=== PATIENT | female | born 1940 | race Two or more races ===

== ENCOUNTER 2024-05-11 08:19 | Inpatient (IN) ==
--- NOTE | 2024-05-11 08:57 | ED.PDOC ---
General ED Provider: Dr. CRISTINA PINEDA MD Chief Complaint: Extremity Swelling/Pain Stated Complaint: Patient is a 84-year-old female that reported to the emergency department with left leg pain. Patient stated that she has had pain and swelling in the left lower leg for the past 2 weeks. Patient stated that she has tried to treat it with [id number] topical ointment with no relief. Patient stated that she has not been seen by her doctor for this issue. Patient says that the area of infection also weeps. She stated that she has a past medical history of A-fib and hypertension. She stated that she is currently treated for the A-fib and hypertension with losartan, Eliquis, metoprolol, and she also takes Celebrex for her arthritis and hydrocodone 10 mg as needed for generalized pain. In the emergency department patient was found to be short of breath respirations were approximately 26 respirations per minute. Patient had an O2 sat of 88% on room air. We placed 2 L nasal cannula and the patient and her O2 sat came up to 95%. When speaking to the patient's family member at bedside it appears patient smoked for well over 30 years and at least 1 pack/day. They stated that the patient was never diagnosed with COPD however that she has shortness of breath chronically. They denied the patient being on any home O2. They denied the patient having any home albuterol or any other inhaler. The patient denied being sick recently. The patient denied being around any other sick contacts recently. The patient currently has an elevated blood pressure of 180/90. Pulse is 63, respirations 26, and a temperature of 97.9 Fahrenheit. Patient is alert and oriented person, place, and time. Patient has a GCS of 15. Time Seen by Provider: 05/11/24 08:21 Mode of Arrival: Wheelchair Information Source: Patient Exam Limitations: No limitations Nursing and Triage Documentation Reviewed and Agree: Yes What is Opioid Naive?: *Opioid Naive implies the patient is not already taking opioids or not chronically receiving opioids on a daily basis. *PRN dosing is not "usually" associated with tolerance. *Patients are at higher risk of over-sedation and aspiration. What is Opioid Tolerant?: *Opioid Tolerance implies less than the expected response to an opioid. *Acquired tolerance is defined by the patient taking 60mg of oral morphine daily (or equianalgesic dose of another opioid) for 1 week or more. *Often associated with chronic pain. *May take more than usual dose to achieve desired pain control. Review of Systems Review Of Systems Constitutional: Reports No symptoms Eyes: Reports No symptoms Ears, Nose, Mouth, Throat: Reports No symptoms Respiratory: Reports Shortness of Breath Cardiac: Reports No symptoms GI: Reports No symptoms : Reports No symptoms Musculoskeletal: Reports No symptoms Skin: Reports Other (Cellulitis left lower leg.) Neurological: Reports No symptoms Endocrine: Reports No symptoms Hematologic/Lymphatic: Reports No symptoms All Other Systems: Reviewed and Negative Physical Exam Physical Exam Appearance: Reports Well-appearing, No pain distress and Well-nourished Ill-appearing: None Pain Distress: None Eyes: Reports ALESSIO, EOMI and Conjunctiva clear ENT: Reports Ears normal, Nose normal and Oropharynx normal Neck: Supple Respiratory: Reports Airway patent, Breath sounds equal and Breath sounds diminished (Breath sounds diminished in the lower lung dubon bilaterally.) Cardiovascular: Reports RRR, Pulses normal, No rub and No murmur GI/: Reports Soft, Nontender, No masses, Bowel sounds normal and No Organomegaly Musculoskeletal: Reports Normal strength, ROM intact and Edema (Patient had +1 edema in the lower extremities bilaterally. Patient had circumferential cellulitis of the left lower leg up to the level approximately 1 inch below the knee. There was no discharge from the area of cellulitis of the left lower leg. The area was warm to touch.) Skin: Reports Warm, Dry and Other (Cellulitis of the left lower leg from the ankle up to 1 inch below the knee circumferentially. No purulent discharge. Area is warm and erythematous. Patient also has what appears to be a fungal (yeast) infection under her right breast.) Neurological: Reports Sensation intact, Motor intact, Reflexes intact, Cranial nerves intact, Alert and Oriented Psychiatric: Reports Affect appropriate and Mood appropriate Course Course 05/11/24 08:54 05/11/24 08:54 Orders, Labs, Meds: Lab Review 05/11/24 05/11/24 08:50 08:54 WBC 6.26 RBC 4.35 Hgb 12.5 Hct 41.6 MCV 95.6 MCH 28.7 MCHC 30.0 L RDW Coeff of Isi 13.4 Plt Count 294 Immature Gran % (Auto) 0.2 Neut % (Auto) 74.6 Lymph % (Auto) 16.0 [place] % (Auto) 6.5 Eos % (Auto) 2.2 Baso % (Auto) 0.5 Neut # (Auto) 4.7 Lymph # (Auto) 1.0 [place] # (Auto) 0.4 Eos # (Auto) 0.1 Baso # (Auto) 0.0 Immature Gran # (Auto) 0.0 Sodium 137.8 Potassium 4.28 Chloride 97.6 L Carbon Dioxide 34.6 H Anion Gap 9.88 BUN 38.6 H Creatinine 1.45 H Estimated GFR (MDRD) 34.00 BUN/Creatinine Ratio 26.62 Glucose 119.5 H Lactic Acid 1.09 Calcium 8.65 Total Bilirubin 0.64 AST 25.9 ALT 17.4 Alkaline Phosphatase 97.8 Troponin I Pending NT-Pro-B Natriuret Pep Pending Total Protein 7.91 Albumin 4.17 Globulin 3.74 Albumin/Globulin Ratio 1.11 SARS CoV-2 RNA Rapid RIKKI Negative Orders Category Date Time Status EKG-(ED ONLY) Stat CARDIO 05/11/24 08:44 Ordered NEBULIZER TREATMENT Stat CARDIO 05/11/24 08:46 Ordered ED APPLY O2 .ONCE EMERGENCY 05/11/24 08:44 Active ED ELECTRICAL EQUIPMENT ASSEMBLER APPLIED .ONCE EMERGENCY 05/11/24 08:44 Active CBC W/ AUTO DIFF Stat LAB 05/11/24 08:54 Completed COMPREHENSIVE METABOLIC PANEL Stat LAB 05/11/24 08:54 Results FLU A/B MOLECULAR Stat LAB 05/11/24 09:17 Received LACTIC ACID Stat LAB 05/11/24 08:54 Completed NT-PROBNP(ED) Stat LAB 05/11/24 08:54 Results SARS COV-2 RNA RAPID RIKKI Stat LAB 05/11/24 08:50 Completed TROPONIN I Stat LAB 05/11/24 08:54 Results Clindamycin Phosphate/D5w [Cleocin 600 mg/50 ml D5w] Meds 05/11/24 08:44 Active 600 mg in 50 ml IV ONCE Furosemide [Lasix] Meds 05/11/24 08:44 Discontinued 40 mg IVP ONCE STA Ipratropium/Albuterol Neb [Duoneb] Meds 05/11/24 08:44 Discontinued 3 ml NEB ONCE STA Methylprednisolone Sod Succ/Pf [Solu-Medrol 125 mg] Meds 05/11/24 08:44 Discontinued 125 mg IVP ONCE ONE Vancomycin/Water For Inj (Peg) [Vancomycin 1 Gram/200 Meds 05/11/24 08:44 Active ml Premix] 1 gm in 200 ml IV ONCE CHEST, 1V AP ONLY Stat RADS 05/11/24 08:44 Completed Medications Generic Name Dose Route Start Last Admin Trade Name Freq PRN Reason Stop Dose Admin VANCOMYCIN/WATER FOR INJ (PEG) 1 gm in 200 mls @ 200 mls/hr 05/11/24 08:44 Vancomycin 1 Gram/200 Ml Premix IV 05/11/24 09:43 ONCE ONE Clindamycin Phosphate 600 mg in 50 mls @ 75 mls/hr 05/11/24 08:44 Cleocin 600 Mg/50 Ml D5w IV 05/11/24 09:23 ONCE ONE Discontinued Medications Generic Name Dose Route Start Last Admin Trade Name Freq PRN Reason Stop Dose Admin Albuterol/Ipratropium 3 ml 05/11/24 08:44 05/11/24 09:01 Ipratropium/Albuterol Vial.Neb NEB 05/11/24 08:45 3 ml ONCE STA Administration Furosemide 40 mg 05/11/24 08:44 Furosemide Inj 40 Mg/4 Ml Vial IVP 05/11/24 08:45 ONCE STA Methylprednisolone Sodium Succinate 125 mg 05/11/24 08:44 Methylprednisolone Sod Succ/Pf 125 Mg/2 Ml Vial IVP 05/11/24 08:45 ONCE ONE Vital Signs: Temp Pulse Resp BP Pulse Ox O2 Flow Rate 05/11/24 08:56 2 05/11/24 08:23 97.9 F 63 20 180/90 H 88 L Discharge Plan Discharge Patient Disposition: PLACED OBSERVATION Discharge Problem: Acute hypoxemic respiratory failure, Cellulitis of left lower extremity, Essential hypertension, Tinea corporis Pulmonary edema Qualifiers: Chronicity: acute Qualified Code(s): J81.0 - Acute pulmonary edema Acute exacerbation of CHF (congestive heart failure) Qualifiers: Heart failure type: unspecified Qualified Code(s): I50.9 - Heart failure, unspecified Did you review [place] [employer]SEMBLY for ALL controlled substances?: Not Applicable ED Provider: CRISTINA PINEDA Condition: Stable Physician Progress Note: Patient is a 84-year-old female that reported to the emergency department with left leg pain. Patient stated that she has had pain and swelling in the left lower leg for the past 2 weeks. Patient stated that she has tried to treat it with [id number] topical ointment with no relief. Patient stated that she has not been seen by her doctor for this issue. Patient says that the area of infection also weeps. She stated that she has a past medical history of A-fib and hypertension. She stated that she is currently treated for the A-fib and hypertension with losartan, Eliquis, metoprolol, and she also takes Celebrex for her arthritis and hydrocodone 10 mg as needed for generalized pain. In the emergency department patient was found to be short of breath respirations were approximately 26 respirations per minute. Patient had an O2 sat of 88% on room air. We placed 2 L nasal cannula and the patient and her O2 sat came up to 95%. When speaking to the patient's family member at bedside it appears patient smoked for well over 30 years and at least 1 pack/day. They stated that the patient was never diagnosed with COPD however that she has shortness of breath chronically. They denied the patient being on any home O2. They denied the patient having any home albuterol or any other inhaler. The patient denied being sick recently. The patient denied being around any other sick contacts recently. The patient currently has an elevated blood pressure of 180/90. Pulse is 63, respirations 26, and a temperature of 97.9 Fahrenheit. Patient is alert and oriented person, place, and time. Patient has a GCS of 15. -Will treat the patient cellulitis of the left lower leg with vancomycin 1 g and clindamycin 600 mg. -We placed patient on 2 L nasal cannula to bring her O2 sat up to 95% as patient has got acute hypoxic respiratory failure. -Will give the patient a DuoNeb treatment and methylprednisolone 125 mg once for difficulty breathing. -Will order chest x-ray, EKG and baseline labs. -Chest x-ray shows consolidations bilaterally in the bibasilar aspects of the lungs. This is either consistent with pneumonia versus pulmonary edema. This was interpreted by the ER physician. In this patient's clinical setting it appears that this is more pulmonary edema due to patient's history of A-fib with apparent congestive heart failure and lower extremity edema as well. -Will treat pulmonary edema with IV Lasix 40 mg. -EKG shows sinus bradycardia with a rate of 52 bpm. Low voltage QRS noted. Normal axis noted. No acute ST elevations noted. This was interpreted by the ER physician. It appears that the patient's sinus bradycardia is likely due to the patient being on beta-marcelo for her chronic ailments. -Will treat patient's tinea corporis with clotrimazole. -Patient has an CLYDE on CKD. Patient's BUN is 38 and creatinine is 1.45. Will hold fluids at this time as patient appears to be fluid overloaded. -Troponin negative and BNP elevated at 2800. -Will contact hospitalist for admission for acute hypoxemic respiratory failure, acute on chronic kidney failure., And CHF exacerbation. -Spoke with Carmen at the hospitalist at [facility] at [phone] on 05/11/2024. At time of conversation patient's vital signs are stable. Discussed the patient's CLYDE on CKD, acute hypoxemic respiratory failure secondary to CHF exacerbation and iv antibiotic needs for patient's circumferential cellulitis of the left lower extremity. Hospitalist has agreed to accept the patient for observation at this time.
[2024-05-11 08:59] LABS: BASOPHILS % (AUTO) 0.5 % (0.0-3.0); EOSINOPHILS # (AUTO) 0.1 K/ul (0.0-0.7); EOSINOPHILS % (AUTO) 2.2 % (0.0-7.0); HEMATOCRIT 41.6 % (37.0-47.0); HEMOGLOBIN 12.5 g/dl (12.0-16.0); IMMATURE GRANULOCYTE % (AUTO) 0.2 % (0.0-5.0); MEAN CORPUSCULAR HEMOGLOBIN 28.7 pg (27.0-31.0); MEAN CORPUSCULAR VOLUME 95.6 fl (81.0-99.0); MONOCYTES # (AUTO) 0.4 K/uL (0.4-2.0); MONOCYTES % (AUTO) 6.5 (0-10); NEUTROPHILS # (AUTO) 4.7 K/ul (2.0-6.9); NEUTROPHILS % (AUTO) 74.6 % (42.2-75.2); PLATELET COUNT 294 10^3/uL (140-440); RDW COEFFICIENT OF VARIATION 13.4 % (11.6-14.8); RED BLOOD COUNT 4.35 10^6/ul (4.20-5.40); WHITE BLOOD COUNT 6.26 K/ul (4.6-10.2)
[2024-05-11] MEDS: DUONEB NEB STA (09:01)
[2024-05-11 09:12] LABS: ALANINE AMINOTRANSFERASE 17.4 U/L (0-35); ALBUMIN 4.17 g/dL (3.5-5.0); ALKALINE PHOSPHATASE 97.8 U/L (53-141); ASPARTATE AMINO TRANSFERASE 25.9 U/L (14-36); BILIRUBIN,TOTAL 0.64 mg/dL (0.2-1.3); BLOOD UREA NITROGEN 38.6 mg/dL (7-17); CALCIUM 8.65 mg/dL (8.4-10.2); CARBON DIOXIDE 34.6 mmol/L (22-30.0); CHLORIDE 97.6 mmol/L (98-107); CREATININE 1.45 mg/dL (0.60-1.30); GLUCOSE 119.5 mg/dL (74-106); POTASSIUM 4.28 mmol/L (3.5-5.1); SODIUM 137.8 mmol/L (134.5-145); TOTAL PROTEIN 7.91 g/dL (6.3-8.2)
--- NOTE | 2024-05-11 09:13 | DI ---
EXAM: CHEST ONE-VIEW HISTORY: Shortness of breath COMPARISON: None FINDINGS: The heart size is prominent. The pulmonary vasculature is normal. Mixed bibasilar inter stitial and alveolar opacities are suggested. No pneumothoraces or pleural effusions. The lungs are hyperinflated. IMPRESSION: 1. Bibasilar atelectasis and/or infiltrates. 2. Cardiomegaly. 3. Suggestion of emphysema. .
[2024-05-11 09:17] LABS: SARS COV-2 RNA RAPID NAAT NEGATIVE (NEGATIVE)
[2024-05-11 09:24] LABS: TROPONIN I < 0.012 ng/ml (0.0000-0.120)
[2024-05-11] MEDS: SOLU-MEDROL 125 MG IVP ONE (09:36)
[2024-05-11] MEDS: LASIX IVP STA (09:37)
[2024-05-11] MEDS: CLEOCIN 600 MG/50 ML D5W 600 MG/50 ML BAG IV ONE (09:38)
[2024-05-11 09:39] LABS: MOLECULAR FLU A NEGATIVE BY NAAT (NEGATIVE); MOLECULAR FLU B NEGATIVE BY NAAT (NEGATIVE)
[2024-05-11] MEDS: LOTRIMIN TP STA (09:39)
[2024-05-11] MEDS: VANCOMYCIN 1 GRAM/200 ML PREMIX 1 GM/200 ML BAG IV ONE (10:15)
[2024-05-11 11:33] VITALS: BMI 40.6
[2024-05-11] MEDS ORDERED: TYLENOL PO PRN (11:41)
--- NOTE | 2024-05-11 11:53 | PCM ---
Date of Service Date Seen by Provider: 05/11/24 Time Seen by Provider: 11:00 Admit Day/Time Admission Date: 05/11/24 Admission Time: 09:34 Reason for Admission Chief Complaint: L.LEG INFLAMMED Hospital Provider Hospital Provider: BAILEE MENEZES PA-C, [facility] History of Present Illness History of Present Illness: Patient is a 84 year old female from home who presents for worsening left lower extremity erythema. She states it started over the last few weeks. It feels s wollen. Has a small blister that has ruptured on her left foot. Notable redness compared to right side. Denies pain or injury. Takes eliquis. Daughter at bedside states she's had issues with this before, last time being about a year ago. She was also noted to have SOB in the ER. She states this is normal for her, and she has exertional dyspnea. She was noted to have O2 sat of 87-88% and was placed on 2L. CXR showed atelectasis vs infiltrates anatoly. Patient denies cough or fever. Patient lives at home alone. Daughter checks in on her often. Pt uses assistive device to walk. Case Discussed With Case Discussed With: Patient's case was discussed with the ER Physicians, Dr. Griffith. [facility] Medical History (Updated 05/11/24 @ 13:25 by JOHNATHON HOFF) Breast cancer C50.919 - Malignant neoplasm of unspecified site of unspecified female breast (ICD-10) A-fib I48.91 - Unspecified atrial fibrillation (ICD-10) Surgical History (Updated 05/11/24 @ 13:25 by JOHNATHON HOFF) History of hysterectomy Z90.710 - Acquired absence of both cervix and uterus (ICD-10) History of appendectomy Z90.49 - Acquired absence of other specified parts of digestive tract (ICD- 10) History of left mastectomy Z90.12 - Acquired absence of left breast and nipple (ICD-10) Social History (Updated 05/11/24 @ 13:22 by JOHNATHON HOFF) Smoking and tobacco status: Former smoker Alcohol intake: never Allergies Allergies Allergy/AdvReac Type Severity Reaction Status Date / Time Penicillins AdvReac Verified 05/11/24 08:30 Current Medications Home Medications apixaban 5 mg tablet (Eliquis) 5 mg PO BID 05/11/24 [History Confirmed 05/11/24 Last Taken 05/11/24] bumetanide 1 mg tablet 1 mg PO DAILY 05/11/24 [History Confirmed 05/11/24 Last Taken 05/11/24] celecoxib 100 mg capsule 100 mg PO Q24H PRN pain 05/11/24 [History Confirmed 05/11/24 Last Taken Unknown] hydrocodone 10 mg-acetaminophen 325 mg tablet 1 tab PO 3XD PRN pain 05/11/24 [History Confirmed 05/11/24 Last Taken Unknown] losartan 50 mg tablet 50 mg PO 2XD 05/11/24 [History Confirmed 05/11/24 Last Taken 05/11/24] metolazone 2.5 mg tablet 2.5 mg PO DIRECTED 05/11/24 [History Confirmed 05/11/24 Last Taken 05/10/24] metoprolol succinate 25 mg tablet,extended release 24 hr 37.5 mg PO BID 05/11/24 [History Confirmed 05/11/24 Last Taken 05/11/24] Home Acetaminophen (Acetaminophen 325 Mg Tablet) 650 mg PO Q4H PRN PRN Reason: Mild Pain Hydrocodone Bitart/Acetaminophen (Hydrocodone Bit/Acetaminophen 10/325 Mg Tablet) 0.5 tab PO 3XD PRN PRN Reason: MODERATE PAIN Last Admin: 05/11/24 12:28 Dose: 0.5 tab Apixaban (Apixaban 5 Mg Tab) 5 mg PO BID [facility] Bumetanide (Bumetanide 1 Mg Tablet) 1 mg PO DAILY [facility] Doxycycline Hyclate (Doxycycline Hyclate 100 Mg Capsule) 100 mg PO Q12HR [facility] Stop: 05/14/24 20:59 Cefazolin Sodium/Dextrose (Ancef 2 Gm/50 Ml D5w) 2 gm in 50 mls @ 75 mls/hr IV Q12HR DEEPTI Stop: 05/14/24 20:59 Losartan Potassium (Losartan Potassium 25 Mg Tablet) 50 mg PO 2XD DEEPTI Metolazone (Metolazone 2.5 Mg Tablet) 2.5 mg PO MoFr@0900 [facility] Metoprolol Succinate (Metoprolol Succinate 25 Mg Tab.Er.24h) 37.5 mg PO BID DEEPTI Nystatin (Nystatin 15 Gm Cream) 1 applic TP BID DEEPTI Ondansetron HCl (Ondansetron Hcl/Pf 4 Mg/2 Ml Sdv) 4 mg IVP Q6H PRN PRN Reason: Nausea / Vomiting Sodium Chloride (0.9% Sodium Chloride 10 Ml Disp.Syrin) 1 syr IVF Q8HR DEEPTI Discontinued Medications Albuterol/Ipratropium (Ipratropium/Albuterol Vial.Neb) 3 ml NEB ONCE STA Stop: 05/11/24 08:45 Last Admin: 05/11/24 09:01 Dose: 3 ml Clotrimazole (Clotrimazole 15 Gm Cream) 1 applic TP ONCE STA Stop: 05/11/24 09:23 Last Admin: 05/11/24 09:39 Dose: 1 applic Furosemide (Furosemide Inj 40 Mg/4 Ml Vial) 40 mg IVP ONCE STA Stop: 05/11/24 08:45 Last Admin: 05/11/24 09:37 Dose: 40 mg VANCOMYCIN/WATER FOR INJ (PEG) (Vancomycin 1 Gram/200 Ml Premix) 1 gm in 200 mls @ 200 mls/hr IV ONCE ONE Stop: 05/11/24 09:43 Last Admin: 05/11/24 10:15 Dose: 200 mls/hr Clindamycin Phosphate (Cleocin 600 Mg/50 Ml D5w) 600 mg in 50 mls @ 75 mls/hr IV ONCE ONE Stop: 05/11/24 09:23 Last Admin: 05/11/24 09:38 Dose: 75 mls/hr Methylprednisolone Sodium Succinate (Methylprednisolone Sod Succ/Pf 125 Mg/2 Ml Vial) 125 mg IVP ONCE ONE Stop: 05/11/24 08:45 Last Admin: 05/11/24 09:36 Dose: 125 mg Opioid Naive vs. Tolerant Does Patient Take Opioids?: Yes Is Patient Opioid Naive?: No What is Opioid Naive?: *Opioid Naive implies the patient is not already taking opioids or not chronically receiving opioids on a daily basis. *PRN dosing is not "usually" associated with tolerance. *Patients are at higher risk of over-sedation and aspiration. Is Patient Opioid Tolerant?: No What is Opioid Tolerant?: *Opioid Tolerance implies less than the expected response to an opioid. *Acquired tolerance is defined by the patient taking 60mg of oral morphine daily (or equianalgesic dose of another opioid) for 1 week or more. *Often associated with chronic pain. *May take more than usual dose to achieve desired pain control. Review of Systems Constitutional: Reports Fatigue and Weakness; Denies Fever Head: Reports Normocephalic and Atraumatic Cardiovascular: Reports Edema; Denies Chest pain or Chest Pressure Respiratory: Reports Shortness of air; Denies Cough Gastrointestinal: Denies Nausea, Vomiting, Diarrhea, Abdominal pain or Melena Genitourinary: Denies Dysuria or Frequency Dermatologic: Reports Rashes and Skin Changes Neurological: Reports Weakness and Problems with walking Physical examination Most Recent Vital Signs: Most Recent Vital Signs Temperature 96.8 F L 05/11/24 10:32 Temperature Source Temporal Artery Scan 05/11/24 10:32 Temperature Source Infrared 05/11/24 08:23 Pulse Rate 54 L 05/11/24 10:32 Respiratory Rate 20 05/11/24 10:32 Blood Pressure 180/90 H 05/11/24 08:23 Blood Pressure Left Arm 138/75 05/11/24 10:32 Blood Pressure Position Supine 05/11/24 10:32 O2 Sat by Pulse Oximetry 96 05/11/24 10:32 Oxygen Delivery Method Nasal Cannula 05/11/24 10:32 Oxygen Flow Rate 2 05/11/24 10:32 Height 5 ft 7 in 05/11/24 10:32 Weight 117.8 kg 05/11/24 10:32 Appearance: Positive No Apparent Distress and Alert and Oriented x3 Skin: Positive Rashes (+erythema noted from dorsal foot to mid zimmer, circumferential, mildly warm, skin is very dry. Small dime sized blister that has ruptured noted on dorsal foot. No other open wounds. Skin blanches. ), [place], Warm, Good Turgor and Good Color HEENT: Positive Normocephalic and Atraumatic Neck: Positive Supple and Midline Trachea Chest/Lungs: Positive Clear to Auscultation Bilaterally; Negative Rales, Rhonci or Wheezes Heart: Positive RRR GI/: Positive Soft, Nontender, Bowel Sounds Normal and No Distention Extremities: Positive Edema (1+ pitting edema anatoly lower ext ) Neurological: Positive Cranial Nerves Intact, Alert, Oriented and Other (+generalized weakness ) Psychiatric: Positive Oriented x4, Appropriate Mood and Appropriate Affect Labs This Visit Labs This Visit: Labs This Visit 05/11/24 05/11/24 05/11/24 08:50 08:54 09:17 WBC 6.26 RBC 4.35 Hgb 12.5 Hct 41.6 MCV 95.6 MCH 28.7 MCHC 30.0 L RDW Coeff of Isi 13.4 Plt Count 294 Immature Gran % (Auto) 0.2 Neut % (Auto) 74.6 Lymph % (Auto) 16.0 [place] % (Auto) 6.5 Eos % (Auto) 2.2 Baso % (Auto) 0.5 Neut # (Auto) 4.7 Lymph # (Auto) 1.0 [place] # (Auto) 0.4 Eos # (Auto) 0.1 Baso # (Auto) 0.0 Immature Gran # (Auto) 0.0 Sodium 137.8 Potassium 4.28 Chloride 97.6 L Carbon Dioxide 34.6 H Anion Gap 9.88 BUN 38.6 H Creatinine 1.45 H Estimated GFR (MDRD) 34.00 BUN/Creatinine Ratio 26.62 Glucose 119.5 H Lactic Acid 1.09 Calcium 8.65 Total Bilirubin 0.64 AST 25.9 ALT 17.4 Alkaline Phosphatase 97.8 Troponin I < 0.012 NT-Pro-B Natriuret Pep 2800 H Total Protein 7.91 Albumin 4.17 Globulin 3.74 Albumin/Globulin Ratio 1.11 Influ A Molecular Assay Negative by naat Influ B Molecular Assay Negative by naat SARS CoV-2 RNA Rapid RIKKI Negative Imaging Imaging: EXAM: CHEST ONE-VIEW HISTORY: Shortness of breath COMPARISON: None FINDINGS: The heart size is prominent. The pulmonary vasculature is normal. Mixed bibasilar interstitial and alveolar opacities are suggested. No pneumothoraces or pleural effusions. The lungs are hyperinflated. IMPRESSION: 1. Bibasilar atelectasis and/or infiltrates. 2. Cardiomegaly. 3. Suggestion of emphysema. Review Statement Review Statement: I have independently reviewed and interpreted the labs/EKGs/imaging that were ordered by the ER provider. I have reviewed all outside records that are available currently in our EMR including imaging/notes/labs from previous visits. Plan Plan: 1. Cellulitis of left lower extremity - Pt given dose of lasix in ER. Will treat with cefazolin and doxy to cover cellulitis and CAP. Daily labs. Check procal. 2. CAP - questionable on CXR. Recommended CT chest but patient declines due to anxiety of CTs and lying flat. Discussed giving her something IV to help her relax but she refuses at this time. Will cover with cefazolin and doxy at this time. 3. Acute hypoxic respiratory failure in setting of CAP and mild fluid overload - Pt takes bumex, given extra dose of lasix in ER. Will monitor. Wean O2 when able. Plan as above. 4. HFpEF - Last echo 2021 with EF of 60%. Sees cardiology at [facility]. Last BNP in 07/26 was 2889. 5. CKD, stage 3b - Last Cr 1.4 and BUN 40 in past 1 year. At baseline. 6. PAF - Cont home meds DVT Prophylaxis: eliquis Time Spent: Greater than 80 minutes spent with patient, 50% of the time spent with this patient was devoted to counseling and coordination of care. [facility] minutes spent discussing advance care planning. Admit to: Obs Discussed Plan of Care with Dr. Lino Barillas. Medications Medication Orders: Medications Ordered Category Date Time Status Acetaminophen [Tylenol] Meds 05/11/24 11:41 Ordered 650 mg PO Q4H PRN Apixaban [Eliquis] Meds 05/11/24 21:00 Ordered 5 mg PO BID Bumetanide [Bumex] Meds 05/12/24 09:00 Ordered 1 mg PO DAILY Hydrocodone Bit/Acetaminophen [[place] 10-325] Meds 05/11/24 11:43 Ordered 0.5 tab PO 3XD PRN Losartan Potassium [Cozaar] Meds 05/11/24 21:00 Ordered 50 mg PO 2XD Metolazone [Zaroxolyn] Meds 05/14/24 12:00 Ordered 2.5 mg PO DIRECTED Metoprolol Succinate [Toprol Xl] Meds 05/11/24 21:00 Ordered 37.5 mg PO BID Ondansetron HCl/Pf [Zofran 4 mg/2 ml] Meds 05/11/24 11:41 Ordered 4 mg IVP Q6H PRN
[2024-05-11] MEDS: NORCO 10-325 PO PRN (12:28)
[2024-05-11] MEDS: DOXYCYCLINE HYCLATE PO SCH (20:51)
[2024-05-11] MEDS: TOPROL XL PO SCH (20:51)
[2024-05-11] MEDS: COZAAR PO SCH (20:51)
[2024-05-11] MEDS: ELIQUIS PO SCH (20:52)
[2024-05-11] MEDS: [UNRECOGNIZED DRUG - OTHER] IV SCH (20:53)
[2024-05-11] MEDS: NYSTATIN CREAM TP SCH (20:53)
[2024-05-11] MEDS: ANCEF IV SCH (20:53)
[2024-05-12 05:39] LABS: BASOPHILS % (AUTO) 0.1 % (0.0-3.0); HEMATOCRIT 41.9 % (37.0-47.0); HEMOGLOBIN 12.5 g/dl (12.0-16.0); IMMATURE GRANULOCYTE % (AUTO) 0.4 % (0.0-5.0); LYMPHOCYTES % (AUTO) 9.8 (10.0-50.0); MEAN CORPUSCULAR HEMOGLOBIN 28.5 pg (27.0-31.0); MEAN CORPUSCULAR HGB CONC 29.8 (31.8-35.4); MEAN CORPUSCULAR VOLUME 95.4 fl (81.0-99.0); MONOCYTES # (AUTO) 0.7 K/uL (0.4-2.0); MONOCYTES % (AUTO) 6.9 (0-10); NEUTROPHILS % (AUTO) 82.8 % (42.2-75.2); PLATELET COUNT 307 10^3/uL (140-440); RDW COEFFICIENT OF VARIATION 13.2 % (11.6-14.8); RED BLOOD COUNT 4.39 10^6/ul (4.20-5.40); WHITE BLOOD COUNT 9.71 K/ul (4.6-10.2)
[2024-05-12 06:05] LABS: ALANINE AMINOTRANSFERASE 23.7 U/L (0-35); ALBUMIN 4.06 g/dL (3.5-5.0); ALKALINE PHOSPHATASE 94.9 U/L (53-141); BILIRUBIN,TOTAL 0.6 mg/dL (0.2-1.3); BLOOD UREA NITROGEN 35.3 mg/dL (7-17); CALCIUM 8.76 mg/dL (8.4-10.2); CARBON DIOXIDE 37.7 mmol/L (22-30.0); CHLORIDE 94.4 mmol/L (98-107); CREATININE 1.47 mg/dL (0.60-1.30); GLUCOSE 127.1 mg/dL (74-106); POTASSIUM 3.81 mmol/L (3.5-5.1); SODIUM 136.9 mmol/L (134.5-145); TOTAL PROTEIN 7.82 g/dL (6.3-8.2)
[2024-05-12] MEDS: BUMEX PO SCH (09:36)
--- NOTE | 2024-05-12 11:44 | PCM.PROG ---
Date/Time Seen Date Seen by Provider: 05/12/24 Time Seen by Provider: 09:00 Provider Provider: BAILEE MENEZES PA-C, [facility] Chief Complaint Chief Complaint: L.LEG INFLAMMED Subjective Subjective: Patient still on O2 this morning, working on weaning it. Her legs feel better. Erythema improved. No events overnight. Objective Appearance: Positive No Apparent Distress and Alert and Oriented x3 Chest/Lungs: Positive Clear to Auscultation Bilaterally; Negative Rales, Rhonci or Wheezes Heart: Positive RRR GI/: Positive Soft, Nontender, Bowel Sounds Normal and No Distention Neurological: Positive Cranial Nerves Intact, Alert, Oriented and Other (+generalized weakness ) Additional Findings: LLE - erythema greatly improved today, mild pitting edema anatoly, pulses and sensation intact Vital Signs Vital Signs: Vital Signs: Last 24 Hours 05/11/24 12:00 05/11/24 13:00 05/11/24 13:00 Temperature Temperature Source Pulse Rate Respiratory Rate Blood Pressure Blood Pressure Mean Blood Pressure Location Blood Pressure Position O2 Sat by Pulse Oximetry Oxygen Delivery Method Nasal Cannula Nasal Cannula Oxygen Flow Rate Telemetry Type Bedside Monitor Telemetry Monitoring Continues Telemetry Heart Rate 59 L Telemetry SPO2 95 EKG [place] Interval 0.15 EKG QRS Interval 0.06 Telemetry Strip Reading SB 05/11/24 14:00 05/11/24 14:00 05/11/24 15:00 Temperature Temperature Source Pulse Rate 66 Respiratory Rate 24 H Blood Pressure 137/53 L Blood Pressure Mean 81 Blood Pressure Location Left Radial Artery Blood Pressure Position Sitting O2 Sat by Pulse Oximetry 93 L Oxygen Delivery Method Nasal Cannula Room Air Room Air Oxygen Flow Rate Telemetry Type Telemetry Monitoring Telemetry Heart Rate Telemetry SPO2 EKG TX Interval EKG QRS Interval Telemetry Strip Reading 05/11/24 15:18 05/11/24 17:00 05/11/24 17:24 Temperature Temperature Source Pulse Rate 60 Respiratory Rate 24 H Blood Pressure 145/72 H Blood Pressure Mean 96 Blood Pressure Location Left Radial Artery Blood Pressure Position Sitting O2 Sat by Pulse Oximetry 94 L Oxygen Delivery Method Room Air Room Air Nasal Cannula Oxygen Flow Rate 2 Telemetry Type Telemetry Monitoring Telemetry Heart Rate Telemetry SPO2 EKG TX Interval EKG QRS Interval Telemetry Strip Reading 05/11/24 17:45 05/11/24 18:28 05/11/24 19:00 Temperature Temperature Source Pulse Rate Respiratory Rate Blood Pressure Blood Pressure Mean Blood Pressure Location Blood Pressure Position O2 Sat by Pulse Oximetry Oxygen Delivery Method Nasal Cannula Nasal Cannula Nasal Cannula Oxygen Flow Rate 2 Telemetry Type Telemetry Monitoring Telemetry Heart Rate Telemetry SPO2 EKG TX Interval EKG QRS Interval Telemetry Strip Reading 05/11/24 19:00 05/11/24 20:00 05/11/24 20:00 Temperature Temperature Source Pulse Rate Respiratory Rate 20 Blood Pressure Blood Pressure Mean Blood Pressure Location Blood Pressure Position O2 Sat by Pulse Oximetry Oxygen Delivery Method Nasal Cannula Oxygen Flow Rate Telemetry Type Bedside Monitor Telemetry Monitoring Continues Telemetry Heart Rate 59 L Telemetry SPO2 95 EKG [place] Interval 0.14 EKG QRS Interval 0.04 L Telemetry Strip Reading SB 05/11/24 20:00 05/11/24 21:00 05/11/24 21:25 Temperature 97.8 F Temperature Source Temporal Artery Scan Pulse Rate 54 L Respiratory Rate 24 H Blood Pressure 134/62 Blood Pressure Mean 86 Blood Pressure Location Left Arm Blood Pressure Position Supine O2 Sat by Pulse Oximetry 95 Oxygen Delivery Method Nasal Cannula Nasal Cannula Nasal Cannula Oxygen Flow Rate 2 2 Telemetry Type Telemetry Monitoring Telemetry Heart Rate Telemetry SPO2 EKG TX Interval EKG QRS Interval Telemetry Strip Reading 05/11/24 22:00 05/11/24 23:00 05/12/24 00:00 Temperature Temperature Source Pulse Rate Respiratory Rate Blood Pressure Blood Pressure Mean Blood Pressure Location Blood Pressure Position O2 Sat by Pulse Oximetry Oxygen Delivery Method Nasal Cannula Nasal Cannula Nasal Cannula Oxygen Flow Rate Telemetry Type Telemetry Monitoring Telemetry Heart Rate Telemetry SPO2 EKG TX Interval EKG QRS Interval Telemetry Strip Reading 05/12/24 00:56 05/12/24 01:00 05/12/24 02:00 Temperature Temperature Source Pulse Rate Respiratory Rate Blood Pressure Blood Pressure Mean Blood Pressure Location Blood Pressure Position O2 Sat by Pulse Oximetry Oxygen Delivery Method Nasal Cannula Nasal Cannula Oxygen Flow Rate Telemetry Type Bedside Monitor Telemetry Monitoring Continues Telemetry Heart Rate 54 L Telemetry SPO2 EKG TX Interval 0.14 EKG QRS Interval 0.06 Telemetry Strip Reading SB 05/12/24 03:00 05/12/24 04:00 05/12/24 05:00 Temperature Temperature Source Pulse Rate Respiratory Rate Blood Pressure Blood Pressure Mean Blood Pressure Location Blood Pressure Position O2 Sat by Pulse Oximetry Oxygen Delivery Method Nasal Cannula Nasal Cannula Nasal Cannula Oxygen Flow Rate Telemetry Type Telemetry Monitoring Telemetry Heart Rate Telemetry SPO2 EKG TX Interval EKG QRS Interval Telemetry Strip Reading 05/12/24 05:34 05/12/24 05:51 05/12/24 06:00 Temperature 97.5 F L Temperature Source Temporal Artery Scan Pulse Rate 55 L Respiratory Rate 16 Blood Pressure 140/62 Blood Pressure Mean 88 Blood Pressure Location Right Arm Blood Pressure Position Supine O2 Sat by Pulse Oximetry 99 Oxygen Delivery Method Nasal Cannula Nasal Cannula Nasal Cannula Oxygen Flow Rate 2 2 Telemetry Type Telemetry Monitoring Telemetry Heart Rate Telemetry SPO2 EKG TX Interval EKG QRS Interval Telemetry Strip Reading 05/12/24 07:00 05/12/24 07:00 05/12/24 08:00 Temperature Temperature Source Pulse Rate Respiratory Rate Blood Pressure Blood Pressure Mean Blood Pressure Location Blood Pressure Position O2 Sat by Pulse Oximetry Oxygen Delivery Method Nasal Cannula Nasal Cannula Oxygen Flow Rate Telemetry Type Bedside Monitor Telemetry Monitoring Continues Telemetry Heart Rate 65 Telemetry SPO2 96 EKG TX Interval 0.15 EKG QRS Interval 0.06 Telemetry Strip Reading NSR 05/12/24 09:00 05/12/24 09:55 05/12/24 10:00 Temperature 97.3 F L Temperature Source Tympanic Pulse Rate 65 Respiratory Rate 20 Blood Pressure 151/56 H Blood Pressure Mean 87 Blood Pressure Location Left Arm Blood Pressure Position Sitting O2 Sat by Pulse Oximetry 93 L Oxygen Delivery Method Nasal Cannula Nasal Cannula Nasal Cannula Oxygen Flow Rate Telemetry Type Telemetry Monitoring Telemetry Heart Rate Telemetry SPO2 EKG TX Interval EKG QRS Interval Telemetry Strip Reading 05/12/24 11:00 Temperature Temperature Source Pulse Rate Respiratory Rate Blood Pressure Blood Pressure Mean Blood Pressure Location Blood Pressure Position O2 Sat by Pulse Oximetry Oxygen Delivery Method Nasal Cannula Oxygen Flow Rate Telemetry Type Telemetry Monitoring Telemetry Heart Rate Telemetry SPO2 EKG TX Interval EKG QRS Interval Telemetry Strip Reading Lab Results Lab Results: Lab Results: Last 24 Hours 05/12/24 05:16 WBC 9.71 RBC 4.39 Hgb 12.5 Hct 41.9 MCV 95.4 MCH 28.5 MCHC 29.8 L RDW Coeff of Isi 13.2 Plt Count 307 Immature Gran % (Auto) 0.4 Neut % (Auto) 82.8 H Lymph % (Auto) 9.8 L [place] % (Auto) 6.9 Eos % (Auto) 0.0 Baso % (Auto) 0.1 Neut # (Auto) 8.0 H Lymph # (Auto) 1.0 [place] # (Auto) 0.7 Eos # (Auto) 0.0 Baso # (Auto) 0.0 Immature Gran # (Auto) 0.0 Sodium 136.9 Potassium 3.81 Chloride 94.4 L Carbon Dioxide 37.7 H Anion Gap 8.61 BUN 35.3 H Creatinine 1.47 H Estimated GFR (MDRD) 34.00 BUN/Creatinine Ratio 24.01 Glucose 127.1 H Hemoglobin A1c 5.89 Calcium 8.76 Total Bilirubin 0.60 AST 30.0 ALT 23.7 Alkaline Phosphatase 94.9 Total Protein 7.82 Albumin 4.06 Globulin 3.76 Albumin/Globulin Ratio 1.07 Procalcitonin < 0.05 Additional Comments Additional Comments: I have independently reviewed and interpreted the labs/EKGs/imaging ordered during this hospital stay. I have reviewed outside records that are available in our EMR that pertain to medical stay including imaging/notes/labs from previous visits. Active Medications Active Medications: Medications Generic Name Dose Route Start Last Admin Trade Name Freq PRN Reason Stop Dose Admin Acetaminophen 650 mg 05/11/24 11:41 Acetaminophen 325 Mg Tablet PO Q4H PRN Mild Pain Hydrocodone Bitart/Acetaminophen 0.5 tab 05/11/24 11:43 05/12/24 03:58 Hydrocodone Bit/Acetaminophen 10/325 Mg Tablet PO 0.5 tab 3XD PRN Administration MODERATE PAIN Apixaban 5 mg 05/11/24 21:00 05/12/24 09:37 Apixaban 5 Mg Tab PO 5 mg BID DEEPTI Administration Bumetanide 1 mg 05/12/24 09:00 05/12/24 09:36 Bumetanide 1 Mg Tablet PO 1 mg DAILY DEEPTI Administration Doxycycline Hyclate 100 mg 05/11/24 21:00 05/12/24 09:37 Doxycycline Hyclate 100 Mg Capsule PO 05/14/24 20:59 100 mg Q12HR DEEPTI Administration Cefazolin Sodium/Dextrose 2 gm in 50 mls @ 75 mls/hr 05/11/24 21:00 05/12/24 09:32 Ancef 2 Gm/50 Ml D5w IV 05/14/24 20:59 75 mls/hr Q12HR DEEPTI Administration Losartan Potassium 50 mg 05/11/24 21:00 05/12/24 09:45 Losartan Potassium 25 Mg Tablet PO 50 mg 2XD DEEPTI Administration Metolazone 2.5 mg 05/14/24 09:00 Metolazone 2.5 Mg Tablet PO MoFr@0900 DEEPTI Metoprolol Succinate 37.5 mg 05/11/24 21:00 05/12/24 09:37 Metoprolol Succinate 25 Mg Tab.Er.24h PO 37.5 mg BID DEEPTI Administration Nystatin 1 applic 05/11/24 21:00 05/12/24 09:38 Nystatin 15 Gm Cream TP 1 applic BID DEEPTI Administration Ondansetron HCl 4 mg 05/11/24 11:41 Ondansetron Hcl/Pf 4 Mg/2 Ml Sdv IVP Q6H PRN Nausea / Vomiting Sodium Chloride 1 syr 05/11/24 21:00 05/12/24 06:07 0.9% Sodium Chloride 10 Ml Disp.Syrin IVF 1 syr Q8HR DEEPTI Administration Plan Plan: 1. Cellulitis of left lower extremity - Improved. Cont with cefazolin and doxy to cover cellulitis and CAP. Daily labs. 2. CAP - questionable on CXR. Recommended CT chest but patient declines due to anxiety of CTs and lying flat. Discussed giving her something IV to help her relax but she refuses at this time. Will cover with cefazolin and doxy at this time. 3. Acute hypoxic respiratory failure in setting of CAP and mild fluid overload - Pt takes bumex, given extra dose of lasix in ER. Will monitor. Wean O2 when able. Plan as above. 4. HFpEF - Last echo 2021 with EF of 60%. Sees cardiology at [facility]. Last BNP in 07/26 was 2889. 5. CKD, stage 3b - Last Cr 1.4 and BUN 40 in past 1 year. At baseline. 6. PAF - Cont home meds DVT Prophylaxis: layla Dispo: Possible dc on oral abx tomorrow Review Statement Review Statement: I have personally discussed and reviewed the patient's visit/currently labs/imaging/decision making with Dr. Barillas, my supervising attending. Greater that 50 minutes spent with patient, 50% of the time spent with this patient was devoted to counseling and coordination of care.
[2024-05-13 05:10] LABS: BASOPHILS % (AUTO) 0.4 % (0.0-3.0); EOSINOPHILS # (AUTO) 0.1 K/ul (0.0-0.7); EOSINOPHILS % (AUTO) 1.3 % (0.0-7.0); HEMATOCRIT 41.8 % (37.0-47.0); HEMOGLOBIN 12.9 g/dl (12.0-16.0); IMMATURE GRANULOCYTE % (AUTO) 0.2 % (0.0-5.0); LYMPHOCYTES % (AUTO) 12.5 (10.0-50.0); MEAN CORPUSCULAR HEMOGLOBIN 29.2 pg (27.0-31.0); MEAN CORPUSCULAR HGB CONC 30.9 (31.8-35.4); MEAN CORPUSCULAR VOLUME 94.6 fl (81.0-99.0); MONOCYTES # (AUTO) 0.5 K/uL (0.4-2.0); MONOCYTES % (AUTO) 6.4 (0-10); NEUTROPHILS # (AUTO) 6.6 K/ul (2.0-6.9); NEUTROPHILS % (AUTO) 79.2 % (42.2-75.2); PLATELET COUNT 302 10^3/uL (140-440); RDW COEFFICIENT OF VARIATION 13.2 % (11.6-14.8); RED BLOOD COUNT 4.42 10^6/ul (4.20-5.40); WHITE BLOOD COUNT 8.27 K/ul (4.6-10.2)
[2024-05-13 05:23] LABS: ALANINE AMINOTRANSFERASE 18.3 U/L (0-35); ALBUMIN 4.07 g/dL (3.5-5.0); ALKALINE PHOSPHATASE 85.4 U/L (53-141); ASPARTATE AMINO TRANSFERASE 30.4 U/L (14-36); BILIRUBIN,TOTAL 0.64 mg/dL (0.2-1.3); BLOOD UREA NITROGEN 41.2 mg/dL (7-17); CALCIUM 8.63 mg/dL (8.4-10.2); CHLORIDE 92.3 mmol/L (98-107); CREATININE 1.48 mg/dL (0.60-1.30); GLUCOSE 117.5 mg/dL (74-106); POTASSIUM 4.29 mmol/L (3.5-5.1); SODIUM 135.8 mmol/L (134.5-145); TOTAL PROTEIN 7.86 g/dL (6.3-8.2)
[2024-05-13 05:30] LABS: CARBON DIOXIDE 34.8 mmol/L (22-30.0)
[2024-05-13] MEDS: BUMEX PO SCH (05:47)
--- NOTE | 2024-05-13 10:52 | PCM.PROG ---
Date/Time Seen Date Seen by Provider: 05/13/24 Time Seen by Provider: 08:50 Provider Provider: BAILEE MENEZES PA-C, [facility] Chief Complaint Chief Complaint: L.LEG INFLAMMED Subjective Subjective: Patient denies complaints. However she became hypoxic into 70s without oxygen through the night. She does not wear O2 at home. Suspect some underlying COPD and/or AMY. Objective Appearance: Positive No Apparent Distress and Alert and Oriented x3 Chest/Lungs: Positive Clear to Auscultation Bilaterally; Negative Rales, Rhonci or Wheezes Heart: Positive RRR GI/: Positive Soft, Nontender, Bowel Sounds Normal and No Distention Neurological: Positive Cranial Nerves Intact, Alert, Oriented and Other (+generalized weakness ) Additional Findings: LLE - erythema greatly improved today, mild pitting edema anatoly, pulses and sensation intact Vital Signs Vital Signs: Vital Signs: Last 24 Hours 05/12/24 11:00 05/12/24 11:58 05/12/24 13:00 Temperature Temperature Source Pulse Rate Respiratory Rate Blood Pressure Blood Pressure Mean Blood Pressure Location Blood Pressure Position O2 Sat by Pulse Oximetry Oxygen Delivery Method Nasal Cannula Nasal Cannula Nasal Cannula Oxygen Flow Rate Telemetry Type Telemetry Monitoring Telemetry Heart Rate Telemetry SPO2 EKG [place] Interval EKG QRS Interval Telemetry Strip Reading 05/12/24 13:00 05/12/24 13:53 05/12/24 13:57 Temperature 97.4 F L Temperature Source Tympanic Pulse Rate 63 Respiratory Rate 24 H Blood Pressure 153/67 H Blood Pressure Mean 95 Blood Pressure Location Left Arm Blood Pressure Position Sitting O2 Sat by Pulse Oximetry 89 L Oxygen Delivery Method Nasal Cannula Nasal Cannula Oxygen Flow Rate Telemetry Type Remote Telemetry Telemetry Monitoring Continues Telemetry Heart Rate 65 Telemetry SPO2 90 L EKG [place] Interval 0.13 EKG QRS Interval 0.06 Telemetry Strip Reading NSR 05/12/24 14:00 05/12/24 15:00 05/12/24 15:58 Temperature Temperature Source Pulse Rate Respiratory Rate Blood Pressure Blood Pressure Mean Blood Pressure Location Blood Pressure Position O2 Sat by Pulse Oximetry Oxygen Delivery Method Nasal Cannula Nasal Cannula Nasal Cannula Oxygen Flow Rate 2 Telemetry Type Telemetry Monitoring Telemetry Heart Rate Telemetry SPO2 EKG AZ Interval EKG QRS Interval Telemetry Strip Reading 05/12/24 17:00 05/12/24 18:00 05/12/24 18:00 Temperature 97.3 F L Temperature Source Tympanic Pulse Rate 65 Respiratory Rate 19 Blood Pressure 151/56 H Blood Pressure Mean 87 Blood Pressure Location Left Arm Blood Pressure Position Sitting O2 Sat by Pulse Oximetry 93 L Oxygen Delivery Method Nasal Cannula Nasal Cannula Nasal Cannula Oxygen Flow Rate Telemetry Type Telemetry Monitoring Telemetry Heart Rate Telemetry SPO2 EKG AZ Interval EKG QRS Interval Telemetry Strip Reading 05/12/24 19:00 05/12/24 19:00 05/12/24 20:00 Temperature Temperature Source Pulse Rate Respiratory Rate Blood Pressure Blood Pressure Mean Blood Pressure Location Blood Pressure Position O2 Sat by Pulse Oximetry Oxygen Delivery Method Nasal Cannula Nasal Cannula Oxygen Flow Rate Telemetry Type Bedside Monitor Telemetry Monitoring Continues Telemetry Heart Rate 65 Telemetry SPO2 92 L EKG [place] Interval 0.13 EKG QRS Interval 0.06 Telemetry Strip Reading NSR 05/12/24 20:00 05/12/24 21:00 05/12/24 21:44 Temperature 97.6 F Temperature Source Temporal Artery Scan Pulse Rate 60 Respiratory Rate 20 Blood Pressure 131/75 Blood Pressure Mean 93 Blood Pressure Location Left Arm Blood Pressure Position Supine O2 Sat by Pulse Oximetry 96 94 L Oxygen Delivery Method Nasal Cannula Nasal Cannula Nasal Cannula Oxygen Flow Rate 2 2 Telemetry Type Telemetry Monitoring Telemetry Heart Rate Telemetry SPO2 EKG AZ Interval EKG QRS Interval Telemetry Strip Reading 05/12/24 22:00 05/12/24 23:00 05/13/24 00:00 Temperature Temperature Source Pulse Rate Respiratory Rate Blood Pressure Blood Pressure Mean Blood Pressure Location Blood Pressure Position O2 Sat by Pulse Oximetry Oxygen Delivery Method Nasal Cannula Nasal Cannula Nasal Cannula Oxygen Flow Rate Telemetry Type Telemetry Monitoring Telemetry Heart Rate Telemetry SPO2 EKG AZ Interval EKG QRS Interval Telemetry Strip Reading 05/13/24 01:00 05/13/24 01:00 05/13/24 02:00 Temperature Temperature Source Pulse Rate Respiratory Rate Blood Pressure Blood Pressure Mean Blood Pressure Location Blood Pressure Position O2 Sat by Pulse Oximetry Oxygen Delivery Method Nasal Cannula Nasal Cannula Oxygen Flow Rate Telemetry Type Bedside Monitor Telemetry Monitoring Continues Telemetry Heart Rate 57 L Telemetry SPO2 EKG [place] Interval 0.15 EKG QRS Interval 0.06 Telemetry Strip Reading SB 05/13/24 02:00 05/13/24 03:00 05/13/24 04:00 Temperature 97.6 F Temperature Source Temporal Artery Scan Pulse Rate 65 Respiratory Rate 22 H Blood Pressure 149/82 H Blood Pressure Mean 104 Blood Pressure Location Left Arm Blood Pressure Position Sitting O2 Sat by Pulse Oximetry 93 L Oxygen Delivery Method Nasal Cannula Nasal Cannula Nasal Cannula Oxygen Flow Rate 2 Telemetry Type Telemetry Monitoring Telemetry Heart Rate Telemetry SPO2 EKG AZ Interval EKG QRS Interval Telemetry Strip Reading 05/13/24 05:00 05/13/24 05:21 05/13/24 05:34 Temperature 97.4 F L Temperature Source Temporal Artery Scan Pulse Rate 63 Respiratory Rate 20 Blood Pressure 117/65 Blood Pressure Mean 82 Blood Pressure Location Left Arm Blood Pressure Position Sitting O2 Sat by Pulse Oximetry 93 L 94 L Oxygen Delivery Method Nasal Cannula Nasal Cannula Nasal Cannula Oxygen Flow Rate 2 2 Telemetry Type Telemetry Monitoring Telemetry Heart Rate Telemetry SPO2 EKG AZ Interval EKG QRS Interval Telemetry Strip Reading 05/13/24 06:00 05/13/24 07:00 05/13/24 07:00 Temperature Temperature Source Pulse Rate Respiratory Rate Blood Pressure Blood Pressure Mean Blood Pressure Location Blood Pressure Position O2 Sat by Pulse Oximetry Oxygen Delivery Method Nasal Cannula Nasal Cannula Oxygen Flow Rate Telemetry Type Bedside Monitor Telemetry Monitoring Continues Telemetry Heart Rate 70 Telemetry SPO2 89 L EKG [place] Interval 0.14 EKG QRS Interval 0.06 Telemetry Strip Reading Sinus Arrhythmia with PAC's 05/13/24 08:00 05/13/24 09:00 05/13/24 10:00 Temperature Temperature Source Pulse Rate Respiratory Rate Blood Pressure Blood Pressure Mean Blood Pressure Location Blood Pressure Position O2 Sat by Pulse Oximetry Oxygen Delivery Method Nasal Cannula Nasal Cannula Nasal Cannula Oxygen Flow Rate Telemetry Type Telemetry Monitoring Telemetry Heart Rate Telemetry SPO2 EKG AZ Interval EKG QRS Interval Telemetry Strip Reading 05/13/24 10:00 05/13/24 10:00 05/13/24 10:42 Temperature 97 F L Temperature Source Tympanic Pulse Rate 60 Respiratory Rate 15 Blood Pressure 134/64 Blood Pressure Mean 87 Blood Pressure Location Left Arm Blood Pressure Position Sitting O2 Sat by Pulse Oximetry 90 L 93 L Oxygen Delivery Method Nasal Cannula Nasal Cannula Nasal Cannula Oxygen Flow Rate 2 Telemetry Type Telemetry Monitoring Telemetry Heart Rate Telemetry SPO2 EKG [place] Interval EKG QRS Interval Telemetry Strip Reading Lab Results Lab Results: Lab Results: Last 24 Hours 05/13/24 05:05 WBC 8.27 RBC 4.42 Hgb 12.9 Hct 41.8 MCV 94.6 MCH 29.2 MCHC 30.9 L RDW Coeff of Isi 13.2 Plt Count 302 Immature Gran % (Auto) 0.2 Neut % (Auto) 79.2 H Lymph % (Auto) 12.5 [place] % (Auto) 6.4 Eos % (Auto) 1.3 Baso % (Auto) 0.4 Neut # (Auto) 6.6 Lymph # (Auto) 1.0 [place] # (Auto) 0.5 Eos # (Auto) 0.1 Baso # (Auto) 0.0 Immature Gran # (Auto) 0.0 Sodium 135.8 Potassium 4.29 Chloride 92.3 L Carbon Dioxide 34.8 H Anion Gap 12.99 BUN 41.2 H Creatinine 1.48 H Estimated GFR (MDRD) 34.00 BUN/Creatinine Ratio 27.83 Glucose 117.5 H Calcium 8.63 Total Bilirubin 0.64 AST 30.4 ALT 18.3 Alkaline Phosphatase 85.4 Total Protein 7.86 Albumin 4.07 Globulin 3.79 Albumin/Globulin Ratio 1.07 Additional Comments Additional Comments: I have independently reviewed and interpreted the labs/EKGs/imaging ordered during this hospital stay. I have reviewed outside records that are available in our EMR that pertain to medical stay including imaging/notes/labs from previous visits. Active Medications Active Medications: Medications Generic Name Dose Route Start Last Admin Trade Name Freq PRN Reason Stop Dose Admin Acetaminophen 650 mg 05/11/24 11:41 Acetaminophen 325 Mg Tablet PO Q4H PRN Mild Pain Hydrocodone Bitart/Acetaminophen 0.5 tab 05/11/24 11:43 05/13/24 04:31 Hydrocodone Bit/Acetaminophen 10/325 Mg Tablet PO 0.5 tab 3XD PRN Administration MODERATE PAIN Apixaban 5 mg 05/11/24 21:00 05/13/24 08:03 Apixaban 5 Mg Tab PO 5 mg BID DEEPTI Administration Bumetanide 1 mg 05/13/24 06:00 05/13/24 05:47 Bumetanide 1 Mg Tablet PO 1 mg QDAC2 DEEPTI Administration Doxycycline Hyclate 100 mg 05/11/24 21:00 05/13/24 08:02 Doxycycline Hyclate 100 Mg Capsule PO 05/14/24 20:59 100 mg Q12HR DEEPTI Administration Cefazolin Sodium/Dextrose 2 gm in 50 mls @ 75 mls/hr 05/11/24 21:00 05/13/24 08:02 Ancef 2 Gm/50 Ml D5w IV 05/14/24 20:59 75 mls/hr Q12HR DEEPTI Administration Losartan Potassium 50 mg 05/11/24 21:00 05/13/24 08:03 Losartan Potassium 25 Mg Tablet PO 50 mg 2XD DEEPTI Administration Metolazone 2.5 mg 05/14/24 09:00 Metolazone 2.5 Mg Tablet PO MoFr@0900 DEEPTI Metoprolol Succinate 37.5 mg 05/11/24 21:00 05/13/24 08:03 Metoprolol Succinate 25 Mg Tab.Er.24h PO 37.5 mg BID DEEPTI Administration Nystatin 1 applic 05/11/24 21:00 05/13/24 08:04 Nystatin 15 Gm Cream TP 1 applic BID DEEPTI Administration Ondansetron HCl 4 mg 05/11/24 11:41 Ondansetron Hcl/Pf 4 Mg/2 Ml Sdv IVP Q6H PRN Nausea / Vomiting Sodium Chloride 1 syr 05/11/24 21:00 05/13/24 04:32 0.9% Sodium Chloride 10 Ml Disp.Syrin IVF 1 syr Q8HR DEEPTI Administration Sodium Chloride 1 syr 05/12/24 17:19 0.9% Sodium Chloride 10 Ml Disp.Syrin IVF PRN PRN Maintain IV Patency Plan Plan: 1. Cellulitis of left lower extremity - Improved. Cont with cefazolin and doxy to cover cellulitis and CAP. Daily labs. 2. CAP - questionable on CXR. Recommended CT chest but patient declines due to anxiety of CTs and lying flat. Discussed giving her something IV to help her relax but she refuses at this time. Will cover with cefazolin and doxy at this time. Getting 2 view CXR today to better evaluate. 3. Acute hypoxic respiratory failure in setting of CAP and mild fluid overload - Pt takes bumex, given extra dose of lasix in ER. Will monitor. Wean O2 when able. Plan as above. 4. HFpEF - Last echo 2021 with EF of 60%. Sees cardiology at [facility]. Last BNP in 07/26 was 2889. 5. CKD, stage 3b - Last Cr 1.4 and BUN 40 in past 1 year. At baseline. 6. PAF - Cont home meds DVT Prophylaxis: eliquis Dispo: Possible dc on oral abx tomorrow Update; CXR showing some fluid overload. Bumex 1 mg IVP ordered. Later patient has gone into a fib RVR. Checked on patient at bedside, she was asymptomatic. Gave lopressor 2.5 mg IVP. Will continue to monitor. She does have a hx of a fib. Echo ordered for tomorrow as well. Review Statement Review Statement: I have personally discussed and reviewed the patient's visit/currently labs/imaging/decision making with Dr. Barillas, my supervising attending. Greater that 50 minutes spent with patient, 50% of the time spent with this patient was devoted to counseling and coordination of care.
--- NOTE | 2024-05-13 11:15 | DI ---
EXAM: CHEST RADIOGRAPH; TWO VIEW HISTORY: Hypoxia. COMPARISON: Chest radiograph 05/11/2024. FINDINGS: Evaluation of the lung apices superimposed anatomy Cardiomediastinal silhouette is unchanged. Atherosclerosis of the aorta. No pneumothorax. Trace bi lateral pleural effusions and/or pleural thickening. Increased interstitial markings represent pulmo nary edema versus pneumonitis versus chronic fibrotic changes; right greater than left. Possible chr onic obstructive pulmonary disease. Degenerative changes IMPRESSION: As above.
[2024-05-13] MEDS: LOPRESSOR IVP ONE ×2 (12:46→14:06)
[2024-05-13] MEDS: BUMEX IVP ONE (12:51)
[2024-05-13] MEDS: CARDIZEM INJ IVP STA ×2 (15:44→17:39)
[2024-05-13] MEDS: TOPROL XL PO SCH (20:30)
[2024-05-13] MEDS: CARDIZEM 125 MG in SODIUM CHLORIDE 100ML 100 ML IV SCH (22:40)
[2024-05-14 05:24] LABS: BASOPHILS % (AUTO) 0.5 % (0.0-3.0); EOSINOPHILS # (AUTO) 0.1 K/ul (0.0-0.7); EOSINOPHILS % (AUTO) 1.5 % (0.0-7.0); HEMATOCRIT 42.3 % (37.0-47.0); HEMOGLOBIN 13.1 g/dl (12.0-16.0); IMMATURE GRANULOCYTE % (AUTO) 0.4 % (0.0-5.0); LYMPHOCYTES # (AUTO) 1.2 K/uL (0.60-3.4); LYMPHOCYTES % (AUTO) 16.4 (10.0-50.0); MEAN CORPUSCULAR VOLUME 93.8 fl (81.0-99.0); MONOCYTES # (AUTO) 0.6 K/uL (0.4-2.0); MONOCYTES % (AUTO) 7.5 (0-10); NEUTROPHILS # (AUTO) 5.5 K/ul (2.0-6.9); NEUTROPHILS % (AUTO) 73.7 % (42.2-75.2); PLATELET COUNT 285 10^3/uL (140-440); RDW COEFFICIENT OF VARIATION 13.3 % (11.6-14.8); RED BLOOD COUNT 4.51 10^6/ul (4.20-5.40)
[2024-05-14 05:40] LABS: ALBUMIN 3.81 g/dL (3.5-5.0); ALKALINE PHOSPHATASE 92.6 U/L (53-141); ASPARTATE AMINO TRANSFERASE 28.2 U/L (14-36); BILIRUBIN,TOTAL 0.52 mg/dL (0.2-1.3); BLOOD UREA NITROGEN 49.7 mg/dL (7-17); CALCIUM 8.41 mg/dL (8.4-10.2); CARBON DIOXIDE 35.3 mmol/L (22-30.0); CHLORIDE 95.2 mmol/L (98-107); CREATININE 1.49 mg/dL (0.60-1.30); GLUCOSE 126.4 mg/dL (74-106); POTASSIUM 4.11 mmol/L (3.5-5.1); SODIUM 136.3 mmol/L (134.5-145); TOTAL PROTEIN 7.4 g/dL (6.3-8.2)
[2024-05-14] MEDS: ZAROXOLYN PO SCH (09:18)
[2024-05-14] MEDS: LANOXIN IVP SCH ×2 (09:19→15:11)
[2024-05-14] MEDS: NORCO 5-325 PO PRN (11:04)
--- NOTE | 2024-05-14 13:11 | PCM.PROG ---
Date/Time Seen Date Seen by Provider: 05/14/24 Time Seen by Provider: 08:40 Provider Provider: BAILEE MENEZES PA-C, [facility] Chief Complaint Chief Complaint: L.LEG INFLAMMED Subjective Subjective: Patient denies complaints. Overall cellulitis is improved. Breathing is baseline. Went into a fib RVR yesterday requiring 2 doses IV lopressor, 2 doses IV cardizem, and ultimately placed on cardizem drip. Could only tolerate 2.5 mg/hr overnight due to soft blood pressures. HR still mildly elevated today. Objective Appearance: Positive No Apparent Distress and Alert and Oriented x3 Chest/Lungs: Positive Clear to Auscultation Bilaterally; Negative Rales, Rhonci or Wheezes Heart: Positive RRR GI/: Positive Soft, Nontender, Bowel Sounds Normal and No Distention Neurological: Positive Cranial Nerves Intact, Alert, Oriented and Other (+generalized weakness ) Additional Findings: LLE - erythema greatly improved today, mild pitting edema anatoly, pulses and sensation intact Vital Signs Vital Signs: Vital Signs: Last 24 Hours 05/13/24 13:11 05/13/24 13:37 05/13/24 13:45 Temperature 97.1 F L Temperature Source Tympanic Pulse Rate 129 H 135 H 133 H Respiratory Rate 20 22 H 20 Blood Pressure 115/57 L 115/57 L 110/60 Blood Pressure Mean 76 76 76 Blood Pressure Location Right Radial Artery Left Arm Right Radial Artery Blood Pressure Position Sitting Sitting Sitting O2 Sat by Pulse Oximetry 93 L 94 L 94 L Oxygen Delivery Method Nasal Cannula Nasal Cannula Nasal Cannula Oxygen Flow Rate 2 2 Telemetry Type Telemetry Monitoring Irregular Telemetry Rate (Approximate) Telemetry SPO2 EKG DC Interval EKG QRS Interval Telemetry Strip Reading 05/13/24 13:51 05/13/24 14:19 05/13/24 14:28 Temperature Temperature Source Pulse Rate 122 H 122 H Respiratory Rate 22 H 22 H Blood Pressure 124/62 97/58 L Blood Pressure Mean 82 71 Blood Pressure Location Right Radial Artery Right Radial Artery Blood Pressure Position Sitting Sitting O2 Sat by Pulse Oximetry 92 L 92 L 94 L Oxygen Delivery Method Nasal Cannula Nasal Cannula Nasal Cannula Oxygen Flow Rate 2 2 2 Telemetry Type Telemetry Monitoring Irregular Telemetry Rate (Approximate) Telemetry SPO2 EKG DC Interval EKG QRS Interval Telemetry Strip Reading 05/13/24 14:41 05/13/24 14:51 05/13/24 15:01 Temperature Temperature Source Pulse Rate 129 H 128 H 110 H Respiratory Rate 22 H 20 Blood Pressure 107/64 99/65 117/66 Blood Pressure Mean 78 76 83 Blood Pressure Location Right Radial Artery Right Radial Artery Right Radial Artery Blood Pressure Position Sitting Sitting Sitting O2 Sat by Pulse Oximetry 92 L 93 L 93 L Oxygen Delivery Method Nasal Cannula Nasal Cannula Nasal Cannula Oxygen Flow Rate 2 2 2 Telemetry Type Telemetry Monitoring Irregular Telemetry Rate (Approximate) Telemetry SPO2 EKG DC Interval EKG QRS Interval Telemetry Strip Reading 05/13/24 15:11 05/13/24 15:29 05/13/24 15:44 Temperature Temperature Source Pulse Rate 135 H 118 H 124 H Respiratory Rate 20 21 H 21 H Blood Pressure 114/70 122/71 120/63 Blood Pressure Mean 84 88 82 Blood Pressure Location Right Radial Artery Right Radial Artery Right Radial Artery Blood Pressure Position Sitting Sitting Sitting O2 Sat by Pulse Oximetry 93 L 94 L 93 L Oxygen Delivery Method Nasal Cannula Nasal Cannula Nasal Cannula Oxygen Flow Rate 2 2 2 Telemetry Type Telemetry Monitoring Irregular Telemetry Rate (Approximate) Telemetry SPO2 EKG DC Interval EKG QRS Interval Telemetry Strip Reading 05/13/24 16:11 05/13/24 16:14 05/13/24 16:30 Temperature Temperature Source Pulse Rate 95 101 H 97 Respiratory Rate 23 H 22 H 21 H Blood Pressure 103/55 L 102/53 L 96/55 L Blood Pressure Mean 71 69 68 Blood Pressure Location Right Radial Artery Right Radial Artery Right Radial Artery Blood Pressure Position Sitting Sitting Supine O2 Sat by Pulse Oximetry 91 L 92 L 92 L Oxygen Delivery Method Nasal Cannula Nasal Cannula Nasal Cannula Oxygen Flow Rate 2 2 2 Telemetry Type Telemetry Monitoring Irregular Telemetry Rate (Approximate) Telemetry SPO2 EKG DC Interval EKG QRS Interval Telemetry Strip Reading 05/13/24 16:45 05/13/24 17:00 05/13/24 17:15 Temperature Temperature Source Pulse Rate 108 H 104 H 132 H Respiratory Rate 20 21 H 20 Blood Pressure 101/60 102/63 118/80 Blood Pressure Mean 73 76 92 Blood Pressure Location Right Radial Artery Right Radial Artery Right Radial Artery Blood Pressure Position Supine Supine Sitting O2 Sat by Pulse Oximetry 92 L 92 L 93 L Oxygen Delivery Method Nasal Cannula Nasal Cannula Nasal Cannula Oxygen Flow Rate 2 2 2 Telemetry Type Telemetry Monitoring Irregular Telemetry Rate (Approximate) Telemetry SPO2 EKG DC Interval EKG QRS Interval Telemetry Strip Reading 05/13/24 17:30 05/13/24 17:45 05/13/24 18:00 Temperature 96.8 F L Temperature Source Tympanic Pulse Rate 119 H 103 H 82 Respiratory Rate 24 H 18 22 H Blood Pressure 98/59 L 88/61 L 85/51 L Blood Pressure Mean 72 70 62 Blood Pressure Location Right Radial Artery Right Radial Artery Right Arm Blood Pressure Position Sitting Supine Supine O2 Sat by Pulse Oximetry 95 92 L 92 L Oxygen Delivery Method Nasal Cannula Nasal Cannula Nasal Cannula Oxygen Flow Rate 2 2 Telemetry Type Telemetry Monitoring Irregular Telemetry Rate (Approximate) Telemetry SPO2 EKG DC Interval EKG QRS Interval Telemetry Strip Reading 05/13/24 19:00 05/13/24 19:00 05/13/24 19:57 Temperature Temperature Source Pulse Rate 92 97 Respiratory Rate 23 H 20 Blood Pressure 95/63 100/58 L Blood Pressure Mean 73 72 Blood Pressure Location Right Arm Left Arm Blood Pressure Position Supine Supine O2 Sat by Pulse Oximetry 94 L 96 Oxygen Delivery Method Nasal Cannula Nasal Cannula Oxygen Flow Rate 2 2 Telemetry Type Bedside Monitor Telemetry Monitoring Continues Irregular Telemetry Rate (Approximate) 100-110 BPM Telemetry SPO2 EKG DC Interval 0.06 L EKG QRS Interval Telemetry Strip Reading AFIB WITH RVR 05/13/24 20:00 05/13/24 21:00 05/13/24 21:48 Temperature 97.2 F L Temperature Source Temporal Artery Scan Pulse Rate 109 H 122 H Respiratory Rate 17 20 Blood Pressure 120/80 108/58 L Blood Pressure Mean 93 74 Blood Pressure Location Left Arm Left Arm Blood Pressure Position Supine Supine O2 Sat by Pulse Oximetry 95 93 L 94 L Oxygen Delivery Method Nasal Cannula Nasal Cannula Nasal Cannula Oxygen Flow Rate 2 2 2 Telemetry Type Telemetry Monitoring Irregular Telemetry Rate (Approximate) Telemetry SPO2 EKG DC Interval EKG QRS Interval Telemetry Strip Reading 05/13/24 22:45 05/13/24 23:00 05/13/24 23:17 Temperature Temperature Source Pulse Rate 122 H 128 H 123 H Respiratory Rate 22 H 21 H 20 Blood Pressure 103/50 L 97/48 L 94/59 L Blood Pressure Mean 67 64 70 Blood Pressure Location Left Arm Left Arm Left Arm Blood Pressure Position Supine Supine Supine O2 Sat by Pulse Oximetry 93 L 94 L 92 L Oxygen Delivery Method Nasal Cannula Nasal Cannula Nasal Cannula Oxygen Flow Rate 2 2 2 Telemetry Type Telemetry Monitoring Irregular Telemetry Rate (Approximate) Telemetry SPO2 EKG DC Interval EKG QRS Interval Telemetry Strip Reading 05/13/24 23:30 05/14/24 00:00 05/14/24 00:15 Temperature Temperature Source Pulse Rate 113 H 120 H 121 H Respiratory Rate 19 18 16 Blood Pressure 93/60 110/62 121/80 Blood Pressure Mean 71 78 93 Blood Pressure Location Right Arm Right Arm Blood Pressure Position Sitting Sitting O2 Sat by Pulse Oximetry 94 L 94 L 95 Oxygen Delivery Method Nasal Cannula Nasal Cannula Nasal Cannula Oxygen Flow Rate 2 2 2 Telemetry Type Telemetry Monitoring Irregular Telemetry Rate (Approximate) Telemetry SPO2 EKG DC Interval EKG QRS Interval Telemetry Strip Reading 05/14/24 00:30 05/14/24 00:45 05/14/24 01:00 Temperature Temperature Source Pulse Rate 117 H 113 H Respiratory Rate 23 H 16 Blood Pressure 117/76 96/45 L Blood Pressure Mean 89 62 Blood Pressure Location Right Arm Right Arm Blood Pressure Position Sitting Supine O2 Sat by Pulse Oximetry 97 96 Oxygen Delivery Method Nasal Cannula Nasal Cannula Oxygen Flow Rate 2 2 Telemetry Type Bedside Monitor Telemetry Monitoring Continues Irregular Telemetry Rate (Approximate) 120-130 BPM Telemetry SPO2 94 EKG DC Interval EKG QRS Interval 0.05 L Telemetry Strip Reading A-FIB WITH RVR 05/14/24 01:00 05/14/24 01:31 05/14/24 01:32 Temperature Temperature Source Pulse Rate 105 H 147 H 121 H Respiratory Rate 22 H 22 H 17 Blood Pressure 93/57 L 93/40 L 86/68 L Blood Pressure Mean 69 57 74 Blood Pressure Location Right Arm Right Arm Left Arm Blood Pressure Position Sitting Sitting Sitting O2 Sat by Pulse Oximetry 94 L 90 L 92 L Oxygen Delivery Method Nasal Cannula Nasal Cannula Nasal Cannula Oxygen Flow Rate 2 2 Telemetry Type Telemetry Monitoring Irregular Telemetry Rate (Approximate) Telemetry SPO2 EKG DC Interval EKG QRS Interval Telemetry Strip Reading 05/14/24 01:45 05/14/24 02:00 05/14/24 02:18 Temperature Temperature Source Pulse Rate 115 H 116 H 135 H Respiratory Rate 20 18 18 Blood Pressure 91/47 L 102/50 L 104/58 L Blood Pressure Mean 61 67 73 Blood Pressure Location Left Arm Left Arm Left Arm Blood Pressure Position Sitting Supine Supine O2 Sat by Pulse Oximetry 92 L 95 93 L Oxygen Delivery Method Nasal Cannula Nasal Cannula Nasal Cannula Oxygen Flow Rate 2 2 2 Telemetry Type Telemetry Monitoring Irregular Telemetry Rate (Approximate) Telemetry SPO2 EKG DC Interval EKG QRS Interval Telemetry Strip Reading 05/14/24 02:33 05/14/24 02:45 05/14/24 03:00 Temperature Temperature Source Pulse Rate 105 H 104 H 103 H Respiratory Rate 21 H 21 H 18 Blood Pressure 103/63 95/53 L 83/57 L Blood Pressure Mean 76 67 65 Blood Pressure Location Left Arm Left Arm Left Arm Blood Pressure Position Supine Sitting Supine O2 Sat by Pulse Oximetry 93 L 94 L 95 Oxygen Delivery Method Nasal Cannula Nasal Cannula Nasal Cannula Oxygen Flow Rate 2 2 2 Telemetry Type Telemetry Monitoring Irregular Telemetry Rate (Approximate) Telemetry SPO2 EKG DC Interval EKG QRS Interval Telemetry Strip Reading 05/14/24 03:42 05/14/24 03:47 05/14/24 04:00 Temperature Temperature Source Pulse Rate 113 H 121 H 106 H Respiratory Rate 22 H 16 18 Blood Pressure 123/79 135/77 127/87 Blood Pressure Mean 93 96 100 Blood Pressure Location Right Arm Right Arm Right Arm Blood Pressure Position Supine Supine Supine O2 Sat by Pulse Oximetry 94 L 91 L 92 L Oxygen Delivery Method Nasal Cannula Nasal Cannula Nasal Cannula Oxygen Flow Rate 2 2 2 Telemetry Type Telemetry Monitoring Irregular Telemetry Rate (Approximate) Telemetry SPO2 EKG DC Interval EKG QRS Interval Telemetry Strip Reading 05/14/24 04:16 05/14/24 04:30 05/14/24 04:47 Temperature Temperature Source Pulse Rate 118 H 112 H 109 H Respiratory Rate 20 18 18 Blood Pressure 110/93 H 120/77 115/96 H Blood Pressure Mean 98 91 102 Blood Pressure Location Right Arm Right Arm Right Arm Blood Pressure Position Supine Supine Supine O2 Sat by Pulse Oximetry 87 L 90 L 90 L Oxygen Delivery Method Nasal Cannula Nasal Cannula Nasal Cannula Oxygen Flow Rate 2 2 2 Telemetry Type Telemetry Monitoring Irregular Telemetry Rate (Approximate) Telemetry SPO2 EKG DC Interval EKG QRS Interval Telemetry Strip Reading 05/14/24 05:00 05/14/24 05:35 05/14/24 05:49 Temperature 97.5 F L Temperature Source Oral Pulse Rate 118 H 141 H Respiratory Rate 17 22 H Blood Pressure 121/79 132/83 Blood Pressure Mean 93 99 Blood Pressure Location Right Arm Right Arm Blood Pressure Position Supine Supine O2 Sat by Pulse Oximetry 95 95 96 Oxygen Delivery Method Nasal Cannula Nasal Cannula Nasal Cannula Oxygen Flow Rate 2 2 3 Telemetry Type Telemetry Monitoring Irregular Telemetry Rate (Approximate) Telemetry SPO2 EKG DC Interval EKG QRS Interval Telemetry Strip Reading 05/14/24 06:00 05/14/24 06:15 05/14/24 06:30 Temperature Temperature Source Pulse Rate 121 H 103 H 119 H Respiratory Rate 16 20 19 Blood Pressure 106/65 104/62 111/57 L Blood Pressure Mean 78 76 75 Blood Pressure Location Left Arm Left Arm Left Arm Blood Pressure Position Supine Supine Supine O2 Sat by Pulse Oximetry 94 L 95 92 L Oxygen Delivery Method Nasal Cannula Nasal Cannula Nasal Cannula Oxygen Flow Rate 2 2 2 Telemetry Type Telemetry Monitoring Irregular Telemetry Rate (Approximate) Telemetry SPO2 EKG DC Interval EKG QRS Interval Telemetry Strip Reading 05/14/24 07:00 05/14/24 07:00 05/14/24 08:00 Temperature Temperature Source Pulse Rate 94 126 H Respiratory Rate Blood Pressure 96/56 L Blood Pressure Mean 69 Blood Pressure Location Right Arm Blood Pressure Position Sitting O2 Sat by Pulse Oximetry 94 L 94 L Oxygen Delivery Method Nasal Cannula Nasal Cannula Oxygen Flow Rate 3 3 Telemetry Type Bedside Monitor Telemetry Monitoring Continues Irregular Telemetry Rate (Approximate) 120-130 BPM Telemetry SPO2 94 EKG DC Interval EKG QRS Interval 0.08 Telemetry Strip Reading Atrial fib with RVR 05/14/24 09:00 05/14/24 09:19 05/14/24 10:00 Temperature 97.6 F Temperature Source Oral Pulse Rate 109 H 116 H 115 H Respiratory Rate 18 16 Blood Pressure 88/41 L 110/53 L Blood Pressure Mean 56 72 Blood Pressure Location Right Arm Right Arm Blood Pressure Position Sitting O2 Sat by Pulse Oximetry 96 94 L Oxygen Delivery Method Nasal Cannula Nasal Cannula Oxygen Flow Rate 3 2 Telemetry Type Telemetry Monitoring Irregular Telemetry Rate (Approximate) Telemetry SPO2 EKG DC Interval EKG QRS Interval Telemetry Strip Reading 05/14/24 10:00 05/14/24 11:00 05/14/24 11:04 Temperature Temperature Source Pulse Rate Respiratory Rate Blood Pressure 103/63 Blood Pressure Mean 76 Blood Pressure Location Right Arm Blood Pressure Position Sitting O2 Sat by Pulse Oximetry 96 94 L 96 Oxygen Delivery Method Nasal Cannula Nasal Cannula Nasal Cannula Oxygen Flow Rate 3 2 2 Telemetry Type Telemetry Monitoring Irregular Telemetry Rate (Approximate) Telemetry SPO2 EKG DC Interval EKG QRS Interval Telemetry Strip Reading Lab Results Lab Results: Lab Results: Last 24 Hours 05/14/24 05:16 WBC 7.50 RBC 4.51 Hgb 13.1 Hct 42.3 MCV 93.8 MCH 29.0 MCHC 31.0 L RDW Coeff of Isi 13.3 Plt Count 285 Immature Gran % (Auto) 0.4 Neut % (Auto) 73.7 Lymph % (Auto) 16.4 Keith % (Auto) 7.5 Eos % (Auto) 1.5 Baso % (Auto) 0.5 Neut # (Auto) 5.5 Lymph # (Auto) 1.2 Keith # (Auto) 0.6 Eos # (Auto) 0.1 Baso # (Auto) 0.0 Immature Gran # (Auto) 0.0 Sodium 136.3 Potassium 4.11 Chloride 95.2 L Carbon Dioxide 35.3 H Anion Gap 9.91 BUN 49.7 H Creatinine 1.49 H Estimated GFR (MDRD) 33.00 BUN/Creatinine Ratio 33.35 Glucose 126.4 H Calcium 8.41 Total Bilirubin 0.52 AST 28.2 ALT 13.0 Alkaline Phosphatase 92.6 Total Protein 7.40 Albumin 3.81 Globulin 3.59 Albumin/Globulin Ratio 1.06 Additional Comments Additional Comments: I have independently reviewed and interpreted the labs/EKGs/imaging ordered during this hospital stay. I have reviewed outside records that are available in our EMR that pertain to medical stay including imaging/notes/labs from previous visits. Active Medications Active Medications: Medications Generic Name Dose Route Start Last Admin Trade Name Tomas PRN Reason Stop Dose Admin Acetaminophen 650 mg 05/11/24 11:41 Acetaminophen 325 Mg Tablet PO Q4H PRN Mild Pain Hydrocodone Bitart/Acetaminophen 1 tab 05/14/24 08:54 05/14/24 11:04 Hydrocodone Bit/Acetaminophen 5/325 Mg Tablet PO 1 tab Q6HR PRN Administration MODERATE PAIN Apixaban 5 mg 05/11/24 21:00 05/14/24 09:19 Apixaban 5 Mg Tab PO 5 mg BID DEEPTI Administration Bumetanide 1 mg 05/13/24 06:00 05/14/24 05:45 Bumetanide 1 Mg Tablet PO 1 mg QDAC2 DEEPTI Administration Digoxin 250 mcg 05/14/24 15:15 Digoxin Inj 500 Mcg/2 Ml Amp IVP Q6H DEEPTI Doxycycline Hyclate 100 mg 05/11/24 21:00 05/14/24 09:18 Doxycycline Hyclate 100 Mg Capsule PO 05/16/24 09:01 100 mg Q12HR DEEPTI Administration Cefazolin Sodium/Dextrose 2 gm in 50 mls @ 75 mls/hr 05/11/24 21:00 05/14/24 09:19 Ancef 2 Gm/50 Ml D5w IV 05/16/24 09:39 75 mls/hr Q12HR DEEPTI Administration Diltiazem HCl 125 mg/ Sodium 125 mls @ 2.5 mls/hr 05/13/24 22:30 05/13/24 22:40 Chloride IV 2.5 mg/hr TITRATION DEEPTI 2.5 mls/hr Administration Protocol 2.5 MG/HR Losartan Potassium 50 mg 05/11/24 21:00 05/13/24 20:30 Losartan Potassium 25 Mg Tablet PO 50 mg 2XD DEEPTI Administration Metolazone 2.5 mg 05/14/24 09:00 05/14/24 09:18 Metolazone 2.5 Mg Tablet PO 2.5 mg MoFr@0900 DEEPTI Administration Metoprolol Succinate 50 mg 05/13/24 21:00 05/14/24 09:18 Metoprolol Succinate 25 Mg Tab.Er.24h PO 50 mg BID DEEPTI Administration Nystatin 1 applic 05/11/24 21:00 05/13/24 21:10 Nystatin 15 Gm Cream TP 1 applic BID DEEPTI Administration Ondansetron HCl 4 mg 05/11/24 11:41 Ondansetron Hcl/Pf 4 Mg/2 Ml Sdv IVP Q6H PRN Nausea / Vomiting Sodium Chloride 1 syr 05/11/24 21:00 05/14/24 05:45 0.9% Sodium Chloride 10 Ml Disp.Syrin IVF Not Given Q8HR DEEPTI Sodium Chloride 1 syr 05/12/24 17:19 05/13/24 17:40 0.9% Sodium Chloride 10 Ml Disp.Syrin IVF 1 syr PRN PRN Administration Maintain IV Patency Plan Plan: 1. Cellulitis of left lower extremity - Improved. Cont with cefazolin and doxy to cover cellulitis and CAP. Daily labs. 2. CAP - questionable on CXR. Recommended CT chest but patient declines due to anxiety of CTs and lying flat. Discussed giving her something IV to help her relax but she refuses at this time. Will cover with cefazolin and doxy at this time. Repeat CXR showed pulm edema vs pneumonitis, extra dose of bumex given yesterday. 3. Acute hypoxic respiratory failure in setting of CAP and mild fluid overload - Pt takes bumex, given extra dose of bumex yesterday. Will monitor. Wean O2 when able. Plan as above. 4. HFpEF - Last echo 2021 with EF of 60%. Sees cardiology at [facility]. Last BNP in 07/26 was 2889. 5. CKD, stage 3b - Last Cr 1.4 and BUN 40 in past 1 year. At baseline. 6. A fib RVR - Have trialed IV lopressor, cardizem, and cardizem drip. Stop cardizem drip. Start digoxin .25 mg IV q6hrs, will transition to oral dig tomorrow if HR controlled. Hold losartan due to low pressures. Metoprolol dose increased yesterday as well. Echo done today with preserved EF per Dr. Indra Barillas. Pt will need f/u with her cardiology group outpatient following dc. Family updated at bedside. DVT Prophylaxis: layla Review Statement Review Statement: I have personally discussed and reviewed the patient's visit/currently labs/imaging/decision making with Dr. Barillas, my supervising attending. Greater that 50 minutes spent with patient, 50% of the time spent with this patient was devoted to counseling and coordination of care.
[2024-05-14] MEDS ORDERED: MIRALAX PO PRN (16:34)
[2024-05-15 05:50] LABS: BASOPHILS % (AUTO) 0.4 % (0.0-3.0); EOSINOPHILS # (AUTO) 0.2 K/ul (0.0-0.7); EOSINOPHILS % (AUTO) 2.2 % (0.0-7.0); HEMATOCRIT 44.4 % (37.0-47.0); HEMOGLOBIN 13.4 g/dl (12.0-16.0); IMMATURE GRANULOCYTE % (AUTO) 0.3 % (0.0-5.0); LYMPHOCYTES # (AUTO) 1.5 K/uL (0.60-3.4); LYMPHOCYTES % (AUTO) 19.7 (10.0-50.0); MEAN CORPUSCULAR HEMOGLOBIN 29.1 pg (27.0-31.0); MEAN CORPUSCULAR HGB CONC 30.2 (31.8-35.4); MEAN CORPUSCULAR VOLUME 96.5 fl (81.0-99.0); MONOCYTES # (AUTO) 0.6 K/uL (0.4-2.0); MONOCYTES % (AUTO) 7.5 (0-10); NEUTROPHILS # (AUTO) 5.3 K/ul (2.0-6.9); NEUTROPHILS % (AUTO) 69.9 % (42.2-75.2); PLATELET COUNT 293 10^3/uL (140-440); RDW COEFFICIENT OF VARIATION 12.9 % (11.6-14.8); WHITE BLOOD COUNT 7.57 K/ul (4.6-10.2)
[2024-05-15 06:06] LABS: ALANINE AMINOTRANSFERASE 10.9 U/L (0-35); ALBUMIN 3.77 g/dL (3.5-5.0); ASPARTATE AMINO TRANSFERASE 29.4 U/L (14-36); BILIRUBIN,TOTAL 0.68 mg/dL (0.2-1.3); BLOOD UREA NITROGEN 55.1 mg/dL (7-17); CALCIUM 8.57 mg/dL (8.4-10.2); CARBON DIOXIDE 35.8 mmol/L (22-30.0); CREATININE 1.58 mg/dL (0.60-1.30); GLUCOSE 128.2 mg/dL (74-106); POTASSIUM 4.51 mmol/L (3.5-5.1); SODIUM 135.4 mmol/L (134.5-145); TOTAL PROTEIN 7.36 g/dL (6.3-8.2)
[2024-05-15] MEDS: LANOXIN PO SCH (09:04)
[2024-05-15] MEDS: ZOFRAN SDV IVP PRN (09:55)
--- NOTE | 2024-05-15 11:16 | PCM.PROG ---
Date/Time Seen Date Seen by Provider: 05/15/24 Time Seen by Provider: 09:10 Provider Provider: BAILEE MENEZES [facility]-C, [facility] Chief Complaint Chief Complaint: L.LEG INFLAMMED Subjective Subjective: Patient states she just doesn't feel comfortable in the chair or bed. Otherwise denies sob, cp, abd pain. Cellulitis improved. Echo done yesterday. HR improved. Daughter at bedside. Objective Appearance: Positive No Apparent Distress and Alert and Oriented x3 Chest/Lungs: Positive Clear to Auscultation Bilaterally; Negative Rales, Rhonci or Wheezes Heart: Positive Irregular Rhythm GI/: Positive Soft, Nontender, Bowel Sounds Normal and No Distention Neurological: Positive Cranial Nerves Intact, Alert, Oriented and Other (+generalized weakness ) Additional Findings: LLE - erythema greatly improved today, mild pitting edema anatoly, pulses and sensation intact Vital Signs Vital Signs: Vital Signs: Last 24 Hours 05/14/24 13:00 05/14/24 14:00 05/14/24 14:00 Temperature 97.9 F Temperature Source Temporal Artery Scan Pulse Rate 124 H Respiratory Rate 18 Blood Pressure 132/57 L Blood Pressure Mean 82 Blood Pressure Location Right Arm Blood Pressure Position Sitting O2 Sat by Pulse Oximetry 94 L 92 L Oxygen Delivery Method Nasal Cannula Nasal Cannula Oxygen Flow Rate 2 2 Height Weight Telemetry Type Bedside Monitor Telemetry Monitoring Continues Irregular Telemetry Rate (Approximate) 100-110 BPM Telemetry Heart Rate Telemetry SPO2 90 L EKG QRS Interval 0.07 Telemetry Strip Reading Atrial fib with RVR 05/14/24 14:17 05/14/24 15:00 05/14/24 15:11 Temperature Temperature Source Pulse Rate 110 H 114 H Respiratory Rate 23 H Blood Pressure 137/84 Blood Pressure Mean 101 Blood Pressure Location Right Arm Blood Pressure Position Sitting O2 Sat by Pulse Oximetry 92 L 93 L Oxygen Delivery Method Nasal Cannula Nasal Cannula Oxygen Flow Rate 1 2 Height Weight Telemetry Type Telemetry Monitoring Irregular Telemetry Rate (Approximate) Telemetry Heart Rate Telemetry SPO2 EKG QRS Interval Telemetry Strip Reading 05/14/24 16:00 05/14/24 18:00 05/14/24 19:00 Temperature Temperature Source Pulse Rate 92 112 H Respiratory Rate 18 16 Blood Pressure 111/54 L 123/67 Blood Pressure Mean 73 85 Blood Pressure Location Right Arm Right Arm Blood Pressure Position Sitting Sitting O2 Sat by Pulse Oximetry 93 L 95 Oxygen Delivery Method Nasal Cannula Nasal Cannula Oxygen Flow Rate 2 2 Height Weight Telemetry Type Bedside Monitor Telemetry Monitoring Continues Irregular Telemetry Rate (Approximate) 100-110 BPM Telemetry Heart Rate Telemetry SPO2 97 EKG QRS Interval 0.07 Telemetry Strip Reading AFIB WITH RVR 05/14/24 19:36 05/14/24 20:00 05/14/24 21:09 Temperature Temperature Source Pulse Rate Respiratory Rate Blood Pressure Blood Pressure Mean Blood Pressure Location Blood Pressure Position O2 Sat by Pulse Oximetry 94 L Oxygen Delivery Method Nasal Cannula Nasal Cannula Oxygen Flow Rate 1 1 Height 5 ft 7 in Weight 117.8 kg Telemetry Type Telemetry Monitoring Irregular Telemetry Rate (Approximate) Telemetry Heart Rate Telemetry SPO2 EKG QRS Interval Telemetry Strip Reading 05/14/24 21:47 05/15/24 01:00 05/15/24 02:00 Temperature 98.1 F Temperature Source Pulse Rate 102 H 104 H Respiratory Rate 22 H 21 H Blood Pressure 106/64 106/55 L Blood Pressure Mean 78 72 Blood Pressure Location Left Arm Left Arm Blood Pressure Position Supine Supine O2 Sat by Pulse Oximetry 95 94 L Oxygen Delivery Method Nasal Cannula Nasal Cannula Oxygen Flow Rate 1 1 Height Weight Telemetry Type Bedside Monitor Telemetry Monitoring Continues Irregular Telemetry Rate (Approximate) 110-120 BPM Telemetry Heart Rate Telemetry SPO2 95 EKG QRS Interval 0.07 Telemetry Strip Reading afib w/RVR 05/15/24 05:32 05/15/24 05:36 05/15/24 07:00 Temperature Temperature Source Pulse Rate 107 H Respiratory Rate 18 Blood Pressure 102/62 Blood Pressure Mean 75 Blood Pressure Location Left Arm Blood Pressure Position Supine O2 Sat by Pulse Oximetry 94 L Oxygen Delivery Method Room Air Nasal Cannula Oxygen Flow Rate 1 Height Weight Telemetry Type Bedside Monitor Telemetry Monitoring Continues Irregular Telemetry Rate (Approximate) 90-100 BPM Telemetry Heart Rate 90 Telemetry SPO2 94 EKG QRS Interval 0.08 Telemetry Strip Reading AFIB RVR 05/15/24 10:00 05/15/24 10:00 Temperature Temperature Source Pulse Rate 91 Respiratory Rate 20 Blood Pressure 115/66 Blood Pressure Mean 82 Blood Pressure Location Left Arm Blood Pressure Position Sitting O2 Sat by Pulse Oximetry 92 L Oxygen Delivery Method Nasal Cannula Nasal Cannula Oxygen Flow Rate 1 1 Height Weight Telemetry Type Telemetry Monitoring Irregular Telemetry Rate (Approximate) Telemetry Heart Rate Telemetry SPO2 EKG QRS Interval Telemetry Strip Reading Lab Results Lab Results: Lab Results: Last 24 Hours 05/15/24 05:21 WBC 7.57 RBC 4.60 Hgb 13.4 Hct 44.4 MCV 96.5 MCH 29.1 MCHC 30.2 L RDW Coeff of Isi 12.9 Plt Count 293 Immature Gran % (Auto) 0.3 Neut % (Auto) 69.9 Lymph % (Auto) 19.7 [place] % (Auto) 7.5 Eos % (Auto) 2.2 Baso % (Auto) 0.4 Neut # (Auto) 5.3 Lymph # (Auto) 1.5 [place] # (Auto) 0.6 Eos # (Auto) 0.2 Baso # (Auto) 0.0 Immature Gran # (Auto) 0.0 Sodium 135.4 Potassium 4.51 Chloride 94.0 L Carbon Dioxide 35.8 H Anion Gap 10.11 BUN 55.1 H Creatinine 1.58 H Estimated GFR (MDRD) 31.00 BUN/Creatinine Ratio 34.87 Glucose 128.2 H Calcium 8.57 Total Bilirubin 0.68 AST 29.4 ALT 10.9 Alkaline Phosphatase 94.0 Total Protein 7.36 Albumin 3.77 Globulin 3.59 Albumin/Globulin Ratio 1.05 Additional Comments Additional Comments: I have independently reviewed and interpreted the labs/EKGs/imaging ordered during this hospital stay. I have reviewed outside records that are available in our EMR that pertain to medical stay including imaging/notes/labs from previous visits. Active Medications Active Medications: Medications Generic Name Dose Route Start Last Admin Trade Name Freq PRN Reason Stop Dose Admin Acetaminophen 650 mg 05/11/24 11:41 Acetaminophen 325 Mg Tablet PO Q4H PRN Mild Pain Hydrocodone Bitart/Acetaminophen 1 tab 05/14/24 08:54 05/15/24 11:10 Hydrocodone Bit/Acetaminophen 5/325 Mg Tablet PO 1 tab Q6HR PRN Administration MODERATE PAIN Apixaban 5 mg 05/11/24 21:00 05/15/24 08:49 Apixaban 5 Mg Tab PO 5 mg BID DEEPTI Administration Bumetanide 1 mg 05/13/24 06:00 05/15/24 05:14 Bumetanide 1 Mg Tablet PO 1 mg QDAC2 DEEPTI Administration Digoxin 62.5 mcg 05/15/24 09:00 05/15/24 09:04 Digoxin 125 Mcg Tablet PO 62.5 mcg DAILY DEEPTI Administration Doxycycline Hyclate 100 mg 05/11/24 21:00 05/15/24 08:48 Doxycycline Hyclate 100 Mg Capsule PO 05/16/24 09:01 100 mg Q12HR DEEPTI Administration Cefazolin Sodium/Dextrose 2 gm in 50 mls @ 75 mls/hr 05/11/24 21:00 05/15/24 09:15 Ancef 2 Gm/50 Ml D5w IV 05/16/24 09:39 75 mls/hr Q12HR DEEPTI Administration Losartan Potassium 50 mg 05/11/24 21:00 05/13/24 20:30 Losartan Potassium 25 Mg Tablet PO 50 mg 2XD DEEPTI Administration Metolazone 2.5 mg 05/14/24 09:00 05/14/24 09:18 Metolazone 2.5 Mg Tablet PO 2.5 mg MoFr@0900 DEEPTI Administration Metoprolol Succinate 50 mg 05/13/24 21:00 05/15/24 08:49 Metoprolol Succinate 25 Mg Tab.Er.24h PO 50 mg BID DEEPTI Administration Nystatin 1 applic 05/11/24 21:00 05/15/24 08:53 Nystatin 15 Gm Cream TP 1 applic BID DEEPTI Administration Ondansetron HCl 4 mg 05/11/24 11:41 05/15/24 09:55 Ondansetron Hcl/Pf 4 Mg/2 Ml Sdv IVP 4 mg Q6H PRN Administration Nausea / Vomiting Polyethylene Glycol 17 gm 05/14/24 16:34 Polyethylene Glycol 17 Gm Powd.Pack PO DAILY PRN Constipation Simethicone 80 mg 05/15/24 06:45 Simethicone 80 Mg Tab.Chew PO Q6H PRN Gas Sodium Chloride 1 syr 05/11/24 21:00 05/15/24 05:17 0.9% Sodium Chloride 10 Ml Disp.Syrin IVF 1 syr Q8HR DEEPTI Administration Sodium Chloride 1 syr 05/12/24 17:19 05/15/24 08:54 0.9% Sodium Chloride 10 Ml Disp.Syrin IVF 1 syr PRN PRN Administration Maintain IV Patency Plan Plan: 1. Cellulitis of left lower extremity - Improved. Cont with cefazolin and doxy to cover cellulitis and CAP. Daily labs. 2. CAP - questionable on CXR. Recommended CT chest but patient declines due to anxiety of CTs and lying flat. Discussed giving her something IV to help her relax but she refuses at this time. Will cover with cefazolin and doxy at this time. Repeat CXR showed pulm edema vs pneumonitis. 3. Acute hypoxic respiratory failure in setting of CAP and mild fluid overload - Pt takes bumex. Will monitor. Wean O2 when able. Plan as above. Suspect underlying COPD contributing. Hx of smoking. 4. HFpEF - Last echo 2021 with EF of 60%. Sees cardiology at [facility]. Last BNP in 07/[address] Indra Barillas Ef is preserved. 5. CKD, stage 3b - Last Cr 1.4 and BUN 40 in past 1 year. At baseline. 6. A fib RVR - Transition to oral dig today. Hold losartan due to low pressures. Metoprolol dose increased 05/13 as well. Echo done with preserved EF per Dr. Indra Barillas. Pt will need f/u with her cardiology group outpatient following dc. Has apt in mid Jun. Family updated at bedside. DVT Prophylaxis: layla Dispo: Potential dc tomorrow if HR controlled Review Statement Review Statement: I have personally discussed and reviewed the patient's visit/currently labs/imaging/decision making with Dr. Barillas, my supervising attending. Greater that 50 minutes spent with patient, 50% of the time spent with this patient was devoted to counseling and coordination of care.
[2024-05-16 05:34] LABS: BASOPHILS % (AUTO) 0.5 % (0.0-3.0); EOSINOPHILS # (AUTO) 0.6 K/ul (0.0-0.7); EOSINOPHILS % (AUTO) 6.7 % (0.0-7.0); HEMATOCRIT 45.1 % (37.0-47.0); HEMOGLOBIN 13.7 g/dl (12.0-16.0); IMMATURE GRANULOCYTE % (AUTO) 0.4 % (0.0-5.0); LYMPHOCYTES # (AUTO) 1.4 K/uL (0.60-3.4); LYMPHOCYTES % (AUTO) 17.1 (10.0-50.0); MEAN CORPUSCULAR HEMOGLOBIN 28.8 pg (27.0-31.0); MEAN CORPUSCULAR HGB CONC 30.4 (31.8-35.4); MEAN CORPUSCULAR VOLUME 94.7 fl (81.0-99.0); MONOCYTES # (AUTO) 0.5 K/uL (0.4-2.0); MONOCYTES % (AUTO) 6.5 (0-10); NEUTROPHILS # (AUTO) 5.7 K/ul (2.0-6.9); NEUTROPHILS % (AUTO) 68.8 % (42.2-75.2); PLATELET COUNT 300 10^3/uL (140-440); RDW COEFFICIENT OF VARIATION 13.2 % (11.6-14.8); RED BLOOD COUNT 4.76 10^6/ul (4.20-5.40); WHITE BLOOD COUNT 8.21 K/ul (4.6-10.2)
[2024-05-16 05:49] LABS: ALANINE AMINOTRANSFERASE 10.9 U/L (0-35); ALBUMIN 3.91 g/dL (3.5-5.0); ALKALINE PHOSPHATASE 97.8 U/L (53-141); BILIRUBIN,TOTAL 0.58 mg/dL (0.2-1.3); BLOOD UREA NITROGEN 59.2 mg/dL (7-17); CALCIUM 8.83 mg/dL (8.4-10.2); CARBON DIOXIDE 36.1 mmol/L (22-30.0); CHLORIDE 93.5 mmol/L (98-107); CREATININE 1.52 mg/dL (0.60-1.30); GLUCOSE 122.7 mg/dL (74-106); POTASSIUM 4.45 mmol/L (3.5-5.1); SODIUM 134.7 mmol/L (134.5-145); TOTAL PROTEIN 7.66 g/dL (6.3-8.2)
--- NOTE | 2024-05-16 07:36 | DCSUM ---
Admission Date Admission Date: 05/11/24 Discharge Date Discharge Date: 05/16/24 Admission Diagnosis Admission Diagnosis: 1. Cellulitis of left lower extremity 2. CAP 3. Acute hypoxic respiratory failure in setting of CAP and mild fluid overload Discharge Diagnosis Discharge Diagnosis: 1. Cellulitis of left lower extremity - Improved 2. CAP - Improved 3. Acute hypoxic respiratory failure in setting of CAP and mild fluid overload - Weaned to 1L 4. HFpEF - Last echo 2021 with EF of 60%. Sees cardiology at [facility]. Last BNP in 07/[address] Indra Barillas Ef is preserved. 5. CKD, stage 3b - At baseline. 6. A fib RVR - Resolved, 80s-100s HR, tolerating digoxin well with metoprolol Hospital Provider Hospital Provider: BAILEE MENEZES PA-C, [facility] Primary Care Physician Primary Care Physician: BRUCE BARILLAS MD Summary of History and Physical Summary of History and Physical: Patient is a 84 year old female from home who presents for worsening left lower extremity erythema. She states it started over the last few weeks. It feels swollen. Has a small blister that has ruptured on her left foot. Notable redness compared to right side. Denies pain or injury. Takes eliquis. Daughter at bedside states she's had issues with this before, last time being about a year ago. She was also noted to have SOB in the ER. She states this is normal for her, and she has exertional dyspnea. She was noted to have O2 sat of 87-88% and was placed on 2L. CXR showed atelectasis vs infiltrates anatoly. Patient denies cough or fever. Patient lives at home alone. Daughter checks in on her often. Pt uses assistive device to walk. Hospital Course Subjective: 05/11/24 1. Cellulitis of left lower extremity - Pt given dose of lasix in ER. Will treat with cefazolin and doxy to cover cellulitis and CAP. Daily labs. Check procal. 2. CAP - questionable on CXR. Recommended CT chest but patient declines due to anxiety of CTs and lying flat. Discussed giving her something IV to help her relax but she refuses at this time. Will cover with cefazolin and doxy at this time. 3. Acute hypoxic respiratory failure in setting of CAP and mild fluid overload - Pt takes bumex, given extra dose of lasix in ER. Will monitor. Wean O2 when able. Plan as above. 4. HFpEF - Last echo 2021 with EF of 60%. Sees cardiology at [facility]. Last BNP in 07/26 was 2889. 5. CKD, stage 3b - Last Cr 1.4 and BUN 40 in past 1 year. At baseline. 6. PAF - Cont home meds 05/12/24 - No events overnight, requiring oxygen still, erythema to leg improving 1. Cellulitis of left lower extremity - Improved. Cont with cefazolin and doxy to cover cellulitis and CAP. Daily labs. 2. CAP - Continue to cover with cefazolin and doxy at this time. 3. Acute hypoxic respiratory failure in setting of CAP and mild fluid overload - Unchanged, still requiring oxygen 4. HFpEF - Last echo 2021 with EF of 60%. Sees cardiology at [facility]. Last BNP in 07/26 was 2889. 5. CKD, stage 3b - At baseline. 6. PAF - Cont home meds 05/13/24 - Became hypoxic into 70s without oxygen through the night. She does not wear O2 at home. Suspect some underlying COPD and/or AMY. 1. Cellulitis of left lower extremity - Improved. Cont with cefazolin and doxy to cover cellulitis and CAP. Daily labs. 2. CAP - Getting 2 view CXR today to better evaluate. 3. Acute hypoxic respiratory failure in setting of CAP and mild fluid overload - Plan as above, wean o2 when able 4. HFpEF - Last echo 2021 with EF of 60%. Sees cardiology at [facility]. Last BNP in 07/26 was 2889. 5. CKD, stage 3b - Last Cr 1.4 and BUN 40 in past 1 year. At baseline. 6. PAF - Cont home meds Update: CXR showing some fluid overload. Bumex 1 mg IVP ordered. Later patient has gone into a fib RVR. Checked on patient at bedside, she was asymptomatic. Gave lopressor 2.5 mg IVP. Will continue to monitor. She does have a hx of a fib. Echo ordered for tomorrow as well 05/14/24 - Overall cellulitis is improved. Breathing is baseline. Went into a fib RVR yesterday requiring 2 doses IV lopressor, 2 doses IV cardizem, and ultimately placed on cardizem drip. Could only tolerate 2.5 mg/hr overnight due to soft blood pressures. HR still mildly elevated today. 1. Cellulitis of left lower extremity - Improved. Cont with cefazolin and doxy to cover cellulitis and CAP. Daily labs. 2. CAP - Repeat CXR showed pulm edema vs pneumonitis, extra dose of bumex given yesterday. 3. Acute hypoxic respiratory failure in setting of CAP and mild fluid overload - Wean O2 when able. Plan as above. 4. HFpEF - Last echo 2021 with EF of 60%. Sees cardiology at [facility]. Last BNP in 07/26 was 2889. Echo done today with preserved EF per Dr. Gold Barillas. 5. CKD, stage 3b - Last Cr 1.4 and BUN 40 in past 1 year. At baseline. 6. A fib RVR - Have trialed IV lopressor, cardizem, and cardizem drip. Stop cardizem drip. Start digoxin .25 mg IV q6hrs, will transition to oral dig tomorrow if HR controlled. Hold losartan due to low pressures. Metoprolol dose increased yesterday as well. Echo done today with preserved EF per Dr. Indra Barillas. Pt will need f/u with her cardiology group outpatient following dc. 05/15/24 - Cellulitis improved. Echo done yesterday. HR improved. Daughter at bedside. 1. Cellulitis of left lower extremity - Improved. Cont with cefazolin and doxy to cover cellulitis and CAP. Daily labs. 2. CAP - Repeat CXR showed pulm edema vs pneumonitis. 3. Acute hypoxic respiratory failure in setting of CAP and mild fluid overload - Wean O2 when able. Plan as above. Suspect underlying COPD contributing. Hx of smoking. 4. HFpEF - Last echo 2021 with EF of 60%. Sees cardiology at [facility]. Last BNP in 07/[address] Indra Barillas Ef is preserved. 5. CKD, stage 3b - Last Cr 1.4 and BUN 40 in past 1 year. At baseline. 6. A fib RVR - Transition to oral dig today. Hold losartan due to low pressures. Metoprolol dose increased 05/13 as well. Echo done with preserved EF per Dr. Indra Barillas. Pt will need f/u with her cardiology group outpatient following dc. Has apt in mid Jun. Tolerated digoxin well as well as metoprolol dose increase. BP still on lower end. Stopped losartan due to this. Continues to require oxygen. 3 step oximetry completed and dropping down into 80s on RA. Appearance: No Apparent Distress and Alert HEENT: MMM and Supple CVS: No Murmur and No Rubs Abdomen: Soft, Non-Tender and No Distention Respiratory: No Dyspnea Extremities: No Edema Vital Signs: Most Recent Vital Signs Temperature 98.2 F 05/16/24 05:10 Temperature Source Temporal Artery Scan 05/16/24 05:10 Temperature Source Infrared 05/11/24 08:23 Pulse Rate 100 05/16/24 05:10 Respiratory Rate 20 05/16/24 05:10 Blood Pressure 121/73 05/16/24 05:10 Blood Pressure Mean 89 05/16/24 05:10 Blood Pressure Left Arm 138/75 05/11/24 10:32 Blood Pressure Location Left Arm 05/16/24 05:10 Blood Pressure Position Supine 05/16/24 05:10 O2 Sat by Pulse Oximetry 91 L 05/16/24 05:36 Oxygen Delivery Method Nasal Cannula 05/16/24 05:36 Oxygen Flow Rate 1 05/16/24 05:36 Height 5 ft 7 in 05/14/24 21:09 Weight 117.8 kg 05/14/24 21:09 Telemetry Type Bedside Monitor 05/16/24 01:00 Telemetry Monitoring Continues 05/16/24 01:00 Irregular Telemetry Rate (Approximate) 80-90 BPM 05/16/24 01:00 Telemetry Heart Rate 80 05/16/24 01:00 Telemetry SPO2 94 05/16/24 01:00 EKG TN Interval 0.06 L 05/13/24 19:00 EKG QRS Interval 0.07 05/16/24 01:00 Telemetry Strip Reading afib 05/16/24 01:00 Imagin05/13/24 EXAM: CHEST RADIOGRAPH; TWO VIEW FINDINGS: Evaluation of the lung apices superimposed anatomy Cardiomediastinal silhouette is unchanged. Atherosclerosis of the aorta. No pneumothorax. Trace bilateral pleural effusions and/or pleural thickening. Increased interstitial markings represent pulmonary edema versus pneumonitis versus chronic fibrotic changes; right greater than left. Possible chronic obstructive pulmonary disease. Degenerative changes IMPRESSION: As above. Lab Results Last 24 Hours: 05/16/24 05:12 WBC 8.21 RBC 4.76 Hgb 13.7 Hct 45.1 MCV 94.7 MCH 28.8 MCHC 30.4 L RDW Coeff of Isi 13.2 Plt Count 300 Immature Gran % (Auto) 0.4 Neut % (Auto) 68.8 Lymph % (Auto) 17.1 [place] % (Auto) 6.5 Eos % (Auto) 6.7 Baso % (Auto) 0.5 Neut # (Auto) 5.7 Lymph # (Auto) 1.4 [place] # (Auto) 0.5 Eos # (Auto) 0.6 Baso # (Auto) 0.0 Immature Gran # (Auto) 0.0 Sodium 134.7 Potassium 4.45 Chloride 93.5 L Carbon Dioxide 36.1 H Anion Gap 9.55 BUN 59.2 H Creatinine 1.52 H Estimated GFR (MDRD) 33.00 BUN/Creatinine Ratio 38.94 Glucose 122.7 H Calcium 8.83 Total Bilirubin 0.58 AST 30.0 ALT 10.9 Alkaline Phosphatase 97.8 Total Protein 7.66 Albumin 3.91 Globulin 3.75 Albumin/Globulin Ratio 1.04 Discharge Instructions Discharge Planning: Discharge Planning > 40 minutes If patient is discharged with left ventricular systolic dysfunction: No Discharged with a beta marcelo? [] If no, why not? [] Discharged with an kathy/arb? [] If no, why not? [] Diagnosis: Acute Hypoxic Respiratory Failure, Pneumonia, CHF exacerbation, Cellulitis Diet: Cardiac Activity: as tolerated Medications: Sony Galvan - Take 2 pills of metoprolol tonight until you can shredder picker your prescription tomorrow You have an appointment with [facility] [place] on June 14 at 9:30. If you have any questions or need to speak with them, their contact number is [phone]. Discharge Medications: Medications at Discharge (Home Meds & RX) apixaban 5 mg tablet (Eliquis) 5 mg PO BID 05/11/24 bumetanide 1 mg tablet 1 mg PO DAILY 05/11/24 celecoxib 100 mg capsule 100 mg PO Q24H PRN pain 05/11/24 hydrocodone 10 mg-acetaminophen 325 mg tablet 1 tab PO 3XD PRN pain 05/11/24 losartan 50 mg tablet 50 mg PO 2XD 05/11/24 metolazone 2.5 mg tablet 2.5 mg PO DIRECTED 05/11/24 metoprolol succinate 25 mg tablet,extended release 24 hr 37.5 mg PO BID 05/11/24 Discharge Plan Discharge Discharge Orders: Discharge Patient (ONCE); Ordered 05/16/24 Ordered By: RHETT CHAVEZ Activity Restrictions/Additional Instructions: Diagnosis: Acute Hypoxic Respiratory Failure, Pneumonia, CHF exacerbation, Cellulitis Diet: Cardiac Activity: as tolerated Medications: Sony Galvan - Take 2 pills of metoprolol tonight until you can shredder picker your prescription tomorrow You have an appointment with [facility] [place] on June 14 at 9:30. If you have any questions or need to speak with them, their cont act number is [phone]. Instructions: Heart Failure (GEN), A-fib (Atrial Fibrillation) (GEN), Acute Respiratory Failure (GEN) Patient Disposition: HOME WITH FAMILY CARE Prescriptions: New digoxin 62.5 mcg (0.0625 mg) tablet 62.5 mcg PO DAILY Qty: 30 0RF metoprolol succinate 50 mg tablet extended release 24 hr 50 mg PO BID Qty: 60 0RF Continued hydrocodone-acetaminophen 10-325 mg tablet 1 tab PO 3XD PRN (Reason: pain) celecoxib 100 mg capsule 100 mg PO Q24H PRN (Reason: pain) bumetanide 1 mg tablet 1 mg PO DAILY Eliquis 5 mg tablet 5 mg PO BID metolazone 2.5 mg tablet 2.5 mg PO DIRECTED Rx Instructions: 2 tablets weekly---one on Friday and one on Friday Discontinued metoprolol succinate 25 mg tablet extended release 24 hr 37.5 mg PO BID losartan 50 mg tablet 50 mg PO 2XD Did you review [place] [employer]OR OF HOUSING for ALL controlled substances?: No Discussed opioids are addictive and Narcan is available by prescription or from pharmacy.: No Condition: Stable Referrals: EVANS MITCHELL [REFERRING] - 05/24/24 2:00 pm
[2024-05-16 14:03] VITALS: BP 109/56; PULSE 91; RESP 19; TEMP 97.5
[2024-05-16] MEDS: MYLICON PO PRN (17:58)
--- NOTE | 2024-05-17 09:50 | ECHO2D ---
Date of Exam: 05/14/2024 Ordering Physician: HOSPITALIST--SHMUEL/ PCP DR. HEREDIA Room #: SCU 1 Reason for Echo: HYPOXIA, A-FIB, CHF, HTN, PULMONARY EDEMA, RESPIRATORY FAILURE M-Mode Normal Adult Results LV Dimensions Normal Adult Results AoV Opening excursions >1.6 >1.6 LVEDD-base- 3.5-5.8 4.7 Ao root dimensions 2.0-3.7 3.6 LVESD-base- 3.1-4.6 L. Atrium dimensions 1.9-3.8 5.2 Post. Wall thickness 0.8-1.1 1.3 IV septum (thickness) 0.7-1.2 1.3 Post. Wall excursion 0.72-1.3 NORMAL Septal motion NORMAL Systolic motion R. Ventricular cavity 1.5-2.0 4.0 LVEF 60% 65% Paradoxical septal wall motion NORMAL 2-D : ENLARGED LEFT ATRIAL, RIGHT ATRIAL AND RIGHT VENTRICLE CAVITIES, NORMAL LEFT VENTRICLE SIZE AND CONTRACTILITY, VALVES --NORMAL, NO EFFUSION, NO THROMBUS M-MODE: MV: NORMAL AV: NORMAL TV: NORMAL PV: CHAMBER SIZE: ENLARGED LEFT ATRIAL, RIGHT ATRIAL AND RIGHT VENTRICLE CAVITIES WALL MOTION: NORMAL PERICARDIUM: NORMAL INTERPRETATION: 1. LEFT VENTRICLE HYPERTROPHY WITH ENLARGED LEFT ATRIAL CAVITY 2. ENLARGED RIGHT VENTRICLE, RIGHT ATRIAL AND LEFT ATRIAL CAVITIES 3. VALVES--NORMAL 4. NORMAL LEFT VENTRICLE SIZE AND LEFT VENTRICLE CONTRACTILITY DIFFICULT STUDY TO PERFORM ON PATIENT MTDD
== END 2024-05-16 18:00 | disposition home or self-care (01) | DRG 193 ==
LOC: SCU 08:19 → ED 08:19 → SCU 10:30
PROVIDERS: ADMIT Hospitalist; ATTEND Physician Assistant